=== PATIENT | female | born 1955 | race Caucasian/White ===

== ENCOUNTER 2019-11-20 15:59 | Outpatient (RCR) | payer MEDICARE, BC, SELFPAY ==
--- NOTE | 2019-11-28 07:12 | PTOPEVAL ---
Thank you for referring this patient to [facility]. Please review, sign, date and return this plan of care ROSE. I agree with and certify that the following plan of care is medically necessary. Referring Physician Date Admitting Provider: Attending Provider: PHYSICIAN NOT ON STAFF Referring Provider: *PT Outpatient Evaluation Start: 11/27/19 21:50 Freq: Status: Active Protocol: Document 11/20/19 16:00 SUSHIL (Rec: 11/27/19 22:04 SUSHIL [id number]) Therapy Assessment Status Assessment Status Assessment Status Evaluation Evaluation Information Problem Diagnosis s/p R TKA revision Onset 10/31/19 Subjective Information patient reports she is feeling Query Text:As Reported By Patient/ good this date. she reports Family she hhad a R TKA revision on 10/31/19. she reports the original TKA of the R knee was on 10/11/18. she reports sh had issues with flexion of the R knee and had a manipulation . she reports this manipulation was unsucessful and had to have her R knee revised. she reports she now has a smaller component. Prior Level of Function Comments Additional Prior Level of Function patient has been rehabbing Comments from bilateral knee replacements for over a year. she reports decreased mobility in the knees and decreased ambulaiton/functional activity performance for over a year. Pain Assessment Timing of Pain Assessment Timing of Pain Assessment Assessment Pain Scale Pain Scale Used Numeric (1 - 10) Self Report Pain Assessment Right Knee(s) Reported Pain Level 1 Pain Description Soreness,Tightness Current Pain Intensity 1 Lowest Pain Intensity 1 Greatest Pain Intensity 2 Pain Aggravating Factors Exercise/Activity,Walking Pain Score Pain Score 1: Self Report Lower Extremity Range of Motion Knee Range of Motion Right Knee Flexion Range of Motion - Active 68 Knee Extension Range of Motion - Active -12 Query Text: Lower Extremity Muscle Strength Testing Knee Strength Right Knee Flexion Strength 4 Good Knee Extension Strength 4 Good Muscle Length Testing Muscle Length Testing Left Hamstring Length 35 Query Text:(90 - 90 Position) Right Hamstring Length
--- NOTE | 2019-12-05 09:39 | PCPTNOTE ---
Pt. called to re-schedule her appointment on this date.
--- NOTE | 2019-12-20 08:01 | PTOPEVAL ---
Thank you for referring this patient to [facility]. Please review, sign, date and return this plan of care ROSE. I agree with and certify that the following plan of care is medically necessary. Referring Physician Date Admitting Provider: Attending Provider: PHYSICIAN NOT ON STAFF Referring Provider: *PT Outpatient Evaluation Start: 11/27/19 21:50 Freq: Status: Active Protocol: Document 12/19/19 13:00 Daniel (Rec: 12/20/19 07:58 [facility] [id number]) Therapy Assessment Status Assessment Status Assessment Status Re-evaluation Evaluation Information Problem Diagnosis s/p R TKA revision Subjective Information patient reports she feels Query Text:As Reported By Patient/ alright this date. she Family reports she feels her knee is still tight and not moving much more than prior to her revision surgery. she reports she does return to the surgeon next week for follow up. Pain Assessment Timing of Pain Assessment Timing of Pain Assessment Assessment Pain Scale Pain Scale Used Numeric (1 - 10) Self Report Pain Assessment Right Knee(s) Reported Pain Level 1 Current Pain Intensity 1 Greatest Pain Intensity 3 Pain Score Pain Score 1: Self Report Lower Extremity Range of Motion Knee Range of Motion Right Knee Flexion Range of Motion - Active 70 Knee Flexion Range of Motion - Passive 82 Knee Extension Range of Motion - Active -2 Query Text: Lower Extremity Muscle Strength Testing Knee Strength Right Knee Flexion Strength 4+ Good + Knee Extension Strength 4+ Good + Palpation Assessment Palpation Palpation patient presents with moderate to severe hypertropy of the proximal scar down to the proximal portion of the patella. patient presents with resistance to PROM stretchig of the R knee into flexion with a firm end feel/mm guarding resistance to rom. Gait Assessment Gait Pattern Assessment Other Gait Observations patient ambulates without any ad, but still requires hand rail assit up and down steps with marked time down steps. PT Clinical Summary Clinical Summary Protocol: PTEVCODE Clinical Summary mrs. licona tolerates therapy moderately well this rowena
--- NOTE | 2019-12-27 07:16 | PTOPEVAL ---
Thank you for referring this patient to [facility]. Please review, sign, date and return this plan of care ROSE. I agree with and certify that the following plan of care is medically necessary. Referring Physician Date Admitting Provider: Attending Provider: PHYSICIAN NOT ON STAFF Referring Provider: *PT Outpatient Evaluation Start: 11/27/19 21:50 Freq: Status: Active Protocol: Document 12/27/19 07:07 JANETH (Rec: 12/27/19 07:15 JANETH [id number]) Therapy Assessment Status Assessment Status Assessment Status Re-evaluation Pain Assessment Pain Scale Pain Scale Used Numeric (1 - 10) Self Report Pain Assessment Right Knee(s) Reported Pain Level 0 Pain Score Pain Score 0: Self Report Lower Extremity Range of Motion General Lower Extremity Range of Motion Gross Lower Extremity Range of Motion right knee AROM is 5-62 Comments degrees and PROM into right knee flexion is 80 degrees. PT Clinical Summary Clinical Summary Protocol: PTEVCODE Clinical Summary Pt. has shown little change in ROM since last evaluation on 12/19/19, but significant change since her initial evaluation. Her current program continues to consist of aggressive ROM mu-ism techniques and functional ckc activities. She continues to progress toward goals and we will continue with 12/19/19 POC. PT Services Indicated Yes PT Procedures PT Minutes Total Minutes Of Individual PT This 5 Session (Minutes) Query Text:The Provision Of PT Services By One Licensed PT (Or Licensed STOCK SHIPPER, Under The Appropriate Direction Of A Licensed PT) To One Patient At A Time ( One-On-One Therapy). Total Minutes Of PT This Session (0-180 5 Minutes) Query Text:Total Minutes Must Equal Or Exceed The Sum Of The Minutes Documented Within This Assessment. Physical Therapy Units Of Care (Medicare 0 Standards) (1-8 Units) Query Text:Does Not Take Into Account Procedural Based Charges. Physical Therapy Units Of Care (Medicaid 0 Standards) (1-8 Units) Reflexes Reflexes
--- NOTE | 2020-01-02 13:55 | PCPTNOTE ---
01/02/20 - patient called and cancelled therapy this date. JTF
--- NOTE | 2020-01-03 13:21 | PTOPEVAL ---
Thank you for referring this patient to [facility]. Please review, sign, date and return this plan of care ROSE. I agree with and certify that the following plan of care is medically necessary. Referring Physician Date Admitting Provider: Attending Provider: PHYSICIAN NOT ON STAFF Referring Provider: *PT Outpatient Evaluation Start: 11/27/19 21:50 Freq: Status: Active Protocol: Document 01/03/20 09:[address] [facility] (Rec: 01/03/20 13:[address] [facility] [id number]) Therapy Assessment Status Assessment Status Assessment Status Re-evaluation Evaluation Information Problem Diagnosis s/p R TKA revision and SAMSON, L knee stiffness Subjective Information patient reports she is sore Query Text:As Reported By Patient/ this date. she reports she is Family swollen and bruised from her manipulation to the R knee this date. she reports she has been able to walk today, but was unable to bear weight yesterday. she reports she is to be in skilled PT daily for the first 5 days per her md and order. Pain Assessment Timing of Pain Assessment Timing of Pain Assessment Assessment Pain Scale Pain Scale Used Numeric (1 - 10) Self Report Pain Assessment Left Knee(s) Reported Pain Level 2 Greatest Pain Intensity 6 Right Knee(s) Reported Pain Level 2 Greatest Pain Intensity 6 Pain Score Pain Score 2,2: Self Report Lower Extremity Range of Motion Knee Range of Motion Left Knee Flexion Range of Motion - Active 85 Knee Flexion Range of Motion - Passive 90 Knee Extension Range of Motion - Active 0 Query Text: Right Knee Flexion Range of Motion - Active 75 Knee Flexion Range of Motion - Passive 80 Knee Extension Range of Motion - Active 0 Query Text: Lower Extremity Muscle Strength Testing Knee Strength Left Knee Flexion Strength 4 Good Knee Extension Strength 4- Good - Right Knee Flexion Strength 4- Good - Knee Extension Strength 3+ Fair + Palpation Assessment Palpation Palpation suprapatellar girth: L = 56. 5cm, R = 58cm jt line girth: L 47cm, R = 50cm Gait Assessment Gait Assessment Ambulation Assistive Devices Cane Weight Bearing Status - Left Full Weight Bearing Status - Right Full Maintains Weight Bearing Status Yes Ambulation Distance 50 Query Text:(Fee
--- NOTE | 2020-02-08 10:08 | PTOPEVAL ---
Thank you for referring this patient to [facility]. Please review, sign, date and return this plan of care ROSE. I agree with and certify that the following plan of care is medically necessary. Referring Physician Date Admitting Provider: Attending Provider: PHYSICIAN NOT ON STAFF Referring Provider: *PT Outpatient Evaluation Start: 11/27/19 21:50 Freq: Status: Active Protocol: Document 02/08/20 08:50 Daniel (Rec: 02/08/20 10:08 SUSHIL [id number]) Therapy Assessment Status Assessment Status Assessment Status Re-evaluation Evaluation Information Problem Diagnosis bilateral TKA revisions/ replacements, R knee manipulation Subjective Information patient reports she feels Query Text:As Reported By Patient/ Good this date. she reports Family she feels much better about her mobility and ambulation. however, she still struggles with stair ambulaiton, long distance walking, and would like to continue to work on her mobility. she has new orders to continue per her md. Pain Assessment Timing of Pain Assessment Timing of Pain Assessment Assessment Pain Scale Pain Scale Used Numeric (1 - 10) Self Report Pain Assessment Left Knee(s) Reported Pain Level 0 Greatest Pain Intensity 3 Right Knee(s) Reported Pain Level 0 Greatest Pain Intensity 4 Pain Score Pain Score 0,0: Self Report Lower Extremity Range of Motion Knee Range of Motion Left Knee Flexion Range of Motion - Passive 104 Knee Extension Range of Motion - Active 0 Query Text: Right Knee Flexion Range of Motion - Passive 100 Knee Extension Range of Motion - Active 0 Query Text: Lower Extremity Muscle Strength Testing General Lower Extremity Strength Gross Lower Extremity Strength 4-/5 bilateral hip flex strength Knee Strength Left Knee Flexion Strength 4+ Good + Knee Extension Strength 4 Good Right Knee Flexion Strength 4+ Good + Knee Extension Strength 4 Good Muscle Length Testing Muscle Length Testing Left Hamstring Length 15 Query Text:(90 - 90 Position) Right Hamstring Length 15 Query Text:(90 - 90 Position) Gait Assessment Gait Assessment Ambulation Assistive Devices None Weight Bearing Status - Left Full Weight Bearing Status - Right Full Maintains Weight Bearing Status Yes Ambulation Distance 150 Query
== END 2020-02-21 23:59 | disposition home or self-care (01) ==
LOC: CHSPT 15:59
DX: Z47.1 Aftercare following joint replacement surgery (principal); Z96.651 Presence of right artificial knee joint
CPT/HCPCS: 97016; 97110; 97140; 97162; 97530

== ENCOUNTER 2020-04-02 09:03 | Outpatient (CLI) | payer MEDICARE, SELFPAY ==
[2020-04-02 09:17] LABS: Basophils Absolute Auto 0.04 K/mm3 (0.00-0.10); Basophils Percent Auto 0.7 % (0.0-1.0); Eosinophils Absolute Auto 0.26 K/mm3 (0.02-0.50); Eosinophils Percent Auto 4.6 % (1.0-6.0); Hematocrit 38.2 % (35.0-42.0); Hemoglobin 12.2 g/dL (11.7-13.8); Immature Granulocyte Absolute 0.02 K/mm3 (0.00-0.00); Immature Granulocyte Percent A 0.4 % (0.0-0.0); Lymphocytes Absolute Auto 0.97 K/mm3 (1.10-4.50); Mean Corpuscular HGB Conc 31.9 g/dL (32.0-36.0); Mean Corpuscular Hemoglobin 28.7 pg (27.0-31.0); Mean Corpuscular Volume 89.9 fL (78.0-102.0); Mean Platelet Volume 9.7 fl (9.2-11.8); Monocytes Absolute Auto 0.66 K/mm3 (0.10-0.90); Monocytes Percent Auto 11.6 % (2.0-11.0); Neutrophils Absolute Auto 3.7 K/mm3 (1.7-7.2); Neutrophils Percent Auto 65.7 % (50.0-70.0); Platelet Count Result 191 K/mm3 (150-420); Red Blood Count 4.25 M/mm3 (4.20-5.40); Red Cell Distribution Width 13.6 % (11.6-14.4); White Blood Count 5.7 K/mm3 (4.8-10.8)
[2020-04-02 09:18] LABS: Add Urine Microscopic? NO; Appearance Urine Clear (Clear); Bilirubin Urine Negative (Negative); Blood Urine Negative (Negative); Color Urine Yellow (Yellow); Glucose Urine UA Negative (Negative); Ketones Urine Negative (Negative); Leukocyte Esterase Ur Negative LEU/UL (Negative); Nitrate Urine Negative (Negative); Protein Urine Negative (Negative); Specific Grav Ur 1.025 (1.010-1.020); Urobilinogen Urine 0.2 mg/dL (0.2-1.0); pH Urine 5.5 (5.0-8.0)
[2020-04-02 09:30] LABS: Creatinine Urine 74.61 mg/dL (40-278); MALB Creatinine Ratio 2.5 mg/g (0-30); Microalbumin Urine Random 1.9 mg/L
[2020-04-02 10:11] LABS: Alanine Aminotransferase 25 U/L (14-59); Albumin Level 3.4 g/dL (3.4-5.0); Alkaline Phosphatase 114 U/L (46-116); Anion Gap 12.6 mmol/L (7-16); Aspartate Amino Transferase 17 U/L (15-37); Bilirubin,Total 0.4 mg/dL (0.00-1.00); Blood Urea Nitrogen 22 mg/dL (7-18); Calcium 9.2 mg/dL (8.5-10.1); Carbon Dioxide 31 mmol/L (21-32); Chloride 104 mmol/L (98-108); Cholesterol 180 mg/dL (0-200); Creatine Kinase 33 U/L (26-192); Estimated Glomerular Filt Rate > 60; Free T4 Free Thyroxine 0.98 ng/dL (0.76-1.46); Glucose 94 mg/dL (70-99); HDL Direct 63 mg/dL (40-60); LDL Cholesterol Calculated 102 mg/dL (<130); Osmolality Calculated 299 mOsm/kg (285-295); Potassium 4.6 mmol/L (3.5-5.1); Sodium 143 mmol/L (136-145); Thyroid Stimulating Hormone 2.73 uIU/mL (0.36-3.74); Total Protein 7.5 g/dL (6.4-8.2); Triglycerides 73 mg/dL (0-150)
[2020-04-08 10:30] LABS: Vitamin D 25 Hydroxy 46 ng/mL (30-100)
== END 2020-04-02 09:04 | disposition home or self-care (01) ==
LOC: CHSLAB 09:05
PROVIDERS: PCP Internal Medicine; Visit Provider Internal Medicine
DX: E78.5 Hyperlipidemia, unspecified (principal); I10 Essential (primary) hypertension; E11.65 Type 2 diabetes mellitus with hyperglycemia; E03.4 Atrophy of thyroid (acquired); E55.9 Vitamin D deficiency, unspecified
CPT/HCPCS: 36415; 80053; 80061; 81003; 82043; 82306; 82550; 83036; 84439; 84443; 85025

== ENCOUNTER 2020-10-31 08:24 | Outpatient (CLI) | payer MEDICARE, SELFPAY ==
[2020-10-31 08:35] LABS: Basophils Absolute Auto 0.04 K/mm3 (0.00-0.10); Basophils Percent Auto 0.6 % (0.0-1.0); Eosinophils Absolute Auto 0.28 K/mm3 (0.02-0.50); Eosinophils Percent Auto 4.3 % (1.0-6.0); Hematocrit 38.5 % (35.0-42.0); Hemoglobin 12.4 g/dL (11.7-13.8); Immature Granulocyte Absolute 0.03 K/mm3 (0.00-0.00); Immature Granulocyte Percent A 0.5 % (0.0-0.0); Lymphocytes Absolute Auto 1.07 K/mm3 (1.10-4.50); Lymphocytes Percent Auto 16.6 % (18.0-42.0); Mean Corpuscular HGB Conc 32.2 g/dL (32.0-36.0); Mean Corpuscular Hemoglobin 29.8 pg (27.0-31.0); Mean Corpuscular Volume 92.5 fL (78.0-102.0); Mean Platelet Volume 9.6 fl (9.2-11.8); Monocytes Absolute Auto 0.64 K/mm3 (0.10-0.90); Monocytes Percent Auto 9.9 % (2.0-11.0); Neutrophils Absolute Auto 4.4 K/mm3 (1.7-7.2); Neutrophils Percent Auto 68.1 % (50.0-70.0); Platelet Count Result 249 K/mm3 (150-420); Red Blood Count 4.16 M/mm3 (4.20-5.40); Red Cell Distribution Width 13.3 % (11.6-14.4); White Blood Count 6.4 K/mm3 (4.8-10.8)
[2020-10-31 08:45] LABS: Appearance Urine Sl Cloudy (Clear); Bilirubin Urine Negative (Negative); Color Urine Yellow (Yellow); Glucose Urine UA Negative (Negative); Ketones Urine Negative (Negative); Leukocyte Esterase Ur Negative (Negative); Nitrate Urine Negative (Negative); Protein Urine Negative (Negative); Specific Grav Ur 1.025 (1.010-1.020); Urobilinogen Urine 0.2 mg/dL (0.2-1.0); pH Urine 5.5 (5.0-8.0)
[2020-10-31 08:55] LABS: Creatinine Urine 146.76 mg/dL (40-278); MALB Creatinine Ratio 8.8 mg/g (0-30); Microalbumin Urine Random < 13.0 mg/L
[2020-10-31 08:56] LABS: Add Urine Microscopic? YES; Bacteria Urine 1+ /hpf; Blood Urine Trace-lysed (Negative); Hemoglobin A1C 5.3 % (<5.7); RBC Urine None seen /hpf (0-2); Squamous Epithelial Cell Urine Moderate /hpf (Few); WBC Urine None seen /hpf (0-3)
[2020-10-31 10:06] LABS: Alanine Aminotransferase 21 U/L (14-59); Albumin Level 3.8 g/dL (3.4-5.0); Alkaline Phosphatase 117 U/L (46-116); Anion Gap 6 mmol/L (8-16); Aspartate Amino Transferase 12 U/L (15-37); Bilirubin,Total 0.5 mg/dL (0.00-1.00); Blood Urea Nitrogen 24 mg/dL (7-18); Carbon Dioxide 31 mmol/L (21-32); Chloride 102 mmol/L (98-108); Cholesterol 187 mg/dL (0-200); Creatine Kinase 37 U/L (26-192); Estimated Glomerular Filt Rate > 60; Free T3 2.11 pg/mL (2.18-3.98); Free T4 Free Thyroxine 1.14 ng/dL (0.76-1.46); Glucose 95 mg/dL (70-99); HDL Direct 62 mg/dL (40-60); LDL Cholesterol Calculated 107 mg/dL (<130); Magnesium 2.1 mg/dL (1.8-2.4); Osmolality Calculated 292 mOsm/kg (285-295); Sodium 139 mmol/L (136-145); Thyroid Stimulating Hormone 1.24 uIU/mL (0.36-3.74); Total Protein 8.2 g/dL (6.4-8.2); Triglycerides 91 mg/dL (0-150)
[2020-11-03 03:35] LABS: Zinc 82 mcg/dL (60-130)
[2020-11-04 13:04] LABS: Vitamin D 25 Hydroxy 52 ng/mL (30-100)
[2020-11-05 22:50] LABS: Vitamin A 41 mcg/dL (38-98)
== END 2020-10-31 08:25 | disposition home or self-care (01) ==
LOC: CHSLAB 08:25
PROVIDERS: PCP Internal Medicine; Visit Provider Internal Medicine
DX: E11.9 Type 2 diabetes mellitus without complications (principal); I10 Essential (primary) hypertension; E78.2 Mixed hyperlipidemia; E03.4 Atrophy of thyroid (acquired); E55.9 Vitamin D deficiency, unspecified; Z98.84 Bariatric surgery status; K90.9 Intestinal malabsorption, unspecified
CPT/HCPCS: 36415; 80053; 80061; 81001; 82043; 82306; 82550; 83036; 83735; 84439; 84443; 84481; 84590; 84630; 85025

== ENCOUNTER 2021-04-16 09:02 | Outpatient (CLI) | payer MEDICARE, SELFPAY ==
[2021-04-16 09:24] LABS: Basophils Absolute Auto 0.07 K/mm3 (0.00-0.10); Eosinophils Absolute Auto 0.23 K/mm3 (0.02-0.50); Eosinophils Percent Auto 3.4 % (1.0-6.0); Hematocrit 37.5 % (35.0-42.0); Immature Granulocyte Absolute 0.03 K/mm3 (0.00-0.00); Immature Granulocyte Percent A 0.4 % (0.0-0.0); Lymphocytes Absolute Auto 1.22 K/mm3 (1.10-4.50); Lymphocytes Percent Auto 18.2 % (18.0-42.0); Mean Corpuscular Hemoglobin 28.1 pg (27.0-31.0); Mean Corpuscular Volume 87.8 fL (78.0-102.0); Mean Platelet Volume 9.8 fl (9.2-11.8); Neutrophils Absolute Auto 4.6 K/mm3 (1.7-7.2); Platelet Count Result 256 K/mm3 (150-420); Red Blood Count 4.27 M/mm3 (4.20-5.40); Red Cell Distribution Width 14.5 % (11.6-14.4); White Blood Count 6.7 K/mm3 (4.8-10.8)
[2021-04-16 09:50] LABS: MALB Creatinine Ratio 12.3 mg/g (0-30); Microalbumin Urine Random < 13.0 mg/L
[2021-04-16 10:29] LABS: Alanine Aminotransferase 21 U/L (14-59); Albumin Level 3.4 g/dL (3.4-5.0); Alkaline Phosphatase 118 U/L (46-116); Anion Gap 9 mmol/L (8-16); Aspartate Amino Transferase 11 U/L (15-37); Bilirubin,Total 0.3 mg/dL (0.00-1.00); Blood Urea Nitrogen 22 mg/dL (7-18); Calcium 8.9 mg/dL (8.5-10.1); Carbon Dioxide 29 mmol/L (21-32); Chloride 102 mmol/L (98-108); Cholesterol 255 mg/dL (0-200); Creatine Kinase 34 U/L (26-192); Estimated Glomerular Filt Rate > 60; Free T3 2.11 pg/mL (2.18-3.98); Free T4 Free Thyroxine 0.88 ng/dL (0.76-1.46); Glucose 97 mg/dL (70-99); HDL Direct 52 mg/dL (40-60); LDL Cholesterol Calculated 174 mg/dL (<130); Osmolality Calculated 293 mOsm/kg (285-295); Potassium 4.3 mmol/L (3.5-5.1); Sodium 140 mmol/L (136-145); Thyroid Stimulating Hormone 7.06 uIU/mL (0.36-3.74); Total Protein 7.6 g/dL (6.4-8.2); Triglycerides 146 mg/dL (0-150)
[2021-04-16 13:04] LABS: Add Urine Microscopic? NO; Appearance Urine Clear (Clear); Bilirubin Urine Negative (Negative); Blood Urine Negative (Negative); Color Urine Yellow (Yellow); Glucose Urine UA Negative (Negative); Ketones Urine Negative (Negative); Leukocyte Esterase Ur Negative LEU/UL (Negative); Nitrate Urine Negative (Negative); Protein Urine Negative (Negative); Specific Grav Ur 1.025 (1.010-1.020); Urobilinogen Urine 0.2 mg/dL (0.2-1.0); pH Urine 5.5 (5.0-8.0)
[2021-04-18 20:40] LABS: Vitamin D 25 Hydroxy 42 ng/mL (30-100)
== END 2021-04-16 09:03 | disposition home or self-care (01) ==
LOC: CHSLAB 09:07
PROVIDERS: PCP Internal Medicine; Visit Provider Internal Medicine
DX: E03.4 Atrophy of thyroid (acquired) (principal); I10 Essential (primary) hypertension; E78.5 Hyperlipidemia, unspecified; E11.9 Type 2 diabetes mellitus without complications; E55.9 Vitamin D deficiency, unspecified; N39.0 Urinary tract infection, site not specified
CPT/HCPCS: 36415; 80053; 80061; 81003; 82043; 82306; 82550; 83036; 84439; 84443; 84481; 85025

== ENCOUNTER 2021-05-14 13:00 | Outpatient (CLI) | payer MEDICARE, SELFPAY ==
--- NOTE | 2021-05-14 | ECHO_ITS ---
Patient Info Name: Mary Lou Reed Age: 65 years : 1955 Gender: Female Ht: 61 in Wt: 279 lbs BSA: 2.42 m2 HR: 81 bpm BP: 153 / 76 mmHg Technical Quality: Fair Exam Date: 05/14/2021 2:03 PM Exam Location: [facility] Patient Status: Outpatient Admit Date: 05/14/2021 Staff Ordering Physician: Trey Posadas MD Digital Marketing Consultant: Miryam Fine RDCS Attending Provider: Trey Posadas MD Referring Physician: Cuauhtemoc THEODORE; Exam Type: CA echo doppler color flow Study Info Indications R01.1 - Cardiac murmur, unspecified Complete two-dimensional, color flow and Doppler transthoracic echocardiogram is performed. Summary 1. Complete two-dimensional, color flow and Doppler transthoracic echocardiogram is performed. 2. Left ventricular chamber dimension is normal. 3. Left ventricular systolic function is normal, estimated at 60-65%. 4. The left ventricular diastolic function is grade II diastolic dysfunction. 5. E/e' 10 is mildly elevated. 6. Left atrial chamber dimension is mildly enlarged. 7. There is mild aortic valve sclerosis. 8. The mitral valve has moderately calcified annulus. Left Ventricle E/e' 10 is mildly elevated. Left ventricular chamber dimension is normal. Left ventricular systolic function is normal, estimated at 60-65%. The left ventricular diastolic function is grade II diastolic dysfunction. Right Ventricle Right ventricular chamber dimension is normal. Right ventricular systolic function is normal. Left Atria Left atrial chamber dimension is mildly enlarged. Right Atria Right atrial chamber dimension is normal. Aortic Valve The aortic valve is trileaflet. There is mild aortic valve sclerosis. There is no aortic valve stenosis. There is no aortic valve regurgitation. Pulmonic Valve There is no pulmonic regurgitation. Mitral Valve The mitral valve has moderately calcified annulus. There is no mitral valve stenosis. There is no mitral valve regurgitation. Tricuspid Valve There is no tricuspid valve regurgitation. Pericardium/Pleural There is no pericardial effusion. Inferior Vena Cava Normal inferior vena cava with >50% collapse upon inspiration consistent with normal right atrial pressure, 5 mmHg. Aorta The aortic root size at the sinus of Valsalva is normal. Left Ventricular Outflow Tract Name Value Normal LVOT 2D LVOT Diameter 1.9 cm LVOT Doppler LVOT Peak Gradient 10 mmHg LVOT Mean Gradient 6 mmHg LVOT VTI 38 cm LVOT VTI/AV VTI Ratio 0.7 LVOT Stroke Volume 108 ml LVOT CO 7.5 l/min LVOT CI 3.1 l/min/m2 Pulmonic Valve Name Value Normal RVOT Doppler RVOT Peak Gradient
== END 2021-05-14 13:01 | disposition home or self-care (01) ==
PROVIDERS: PCP Internal Medicine; Visit Provider Internal Medicine
DX: R01.1 Cardiac murmur, unspecified (principal); I51.7 Cardiomegaly
CPT/HCPCS: 93306

== ENCOUNTER 2021-05-22 10:37 | Emergency (ER) | payer MEDICARE, SELFPAY ==
--- NOTE | ~2021-05-22 | CT_ITS ---
EXAMINATION: CTA chest PE protocol EXAM DATE: 05/22/2021 15:03 INDICATION: D Dimer, chest pain. Elevated d-dimer. TECHNIQUE: Spiral CTA of the chest (pulmonary arteries) was performed with 100 cc Omnipaque 350 intr avenous contrast injection. Images were acquired during the pulmonary arterial phase. Coronal maxi mum intensity projection 3D-reconstructions were created by the technologist on dedicated workstation . Axial, coronal and sagittal reformatted images were reviewed. The dose-length product (DLP) for t his examination was 1737.68 mGy-cm. The exposure was tailored according to patient size (auto mA ex posure control), and iterative reconstruction (ASIR) was used as additional dose reduction technique. There is no prior study for comparison. Reportedly IV infiltrated at right hand. FINDINGS: There is suboptimal opacification, reportedly IV infiltrated. There are no central pulmonar y emboli. There is loss of attenuation in the segmental pulmonary arteries from respiratory motion, s egmental regions not confidently evaluated. No thoracic aortic dissection. Left posterior sulcus calcified granuloma. The lungs are otherwise clear. There are no pleural or pericardial effusions. Tracheobronchial tree is patent. There is no mediastinal, hilar or axillary lymphadenopathy. Th ere is no pneumothorax. Heart normal in size. No evidence of coronary arterial calcification. Mirza rgical changes probably gastric sleeve procedure, with small to moderate gastroesophageal hiatal marianela ia. There is mild to moderate thoracic spondylosis without osteoblastic or osteolytic lesions identi fied. IMPRESSION: 1. No central pulmonary emboli. Segmental arteries poorly evaluated. 2. Small to moderate hiatal hernia. Reviewed, dictated and finalized at location B.
--- NOTE | ~2021-05-22 | XR_ITS ---
EXAMINATION: XR chest 2V EXAM DATE: 05/22/2021 13:11 INDICATION: Chest pain, hx pleurisy. TECHNIQUE: Frontal and lateral projections of the chest obtained and reviewed. Comparison is made to prior examination from 04/04/2016. FINDINGS: The lungs are clear. There are no pleural effusions. The cardiomediastinal silhouette is within normal limits. There is no pneumothorax suspected. The bones and soft tissues are unremarkab le. IMPRESSION: Unremarkable chest x-ray exam. Reviewed, dictated and finalized at location B.
[2021-05-22 10:42] VITALS: BP 149/70; PULSE 74; RESP 16; TEMP 36.1; O2SAT 98
--- NOTE | 2021-05-22 12:36 | ECG_ITS ---
Measurements Intervals [place] Rate: 68 P: 58 RI: 156 QRS: 55 QRSD: 90 T: 59 QT: 396 QTc: 421 Interpretive Statements SINUS RHYTHM NONSPECIFIC T-WAVE ABNORMALITY- HIGH LATERAL LEADS BASELINE ARTIFACT- II, III, AVF, V1-V3 BORDERLINE ECG Electronically Signed On 05-22-2021 13:45:56 CDT by Jameson Roth D.O.
[2021-05-22 13:11] LABS: Basophils Absolute Auto 0.06 K/mm3 (0.00-0.10); Basophils Percent Auto 0.9 % (0.0-1.0); Eosinophils Absolute Auto 0.28 K/mm3 (0.02-0.50); Eosinophils Percent Auto 4.1 % (1.0-6.0); Hematocrit 38.7 % (35.0-42.0); Hemoglobin 12.5 g/dL (11.7-13.8); Immature Granulocyte Absolute 0.03 K/mm3 (0.00-0.00); Immature Granulocyte Percent A 0.4 % (0.0-0.0); Lymphocytes Absolute Auto 1.16 K/mm3 (1.10-4.50); Lymphocytes Percent Auto 16.9 % (18.0-42.0); Mean Corpuscular HGB Conc 32.3 g/dL (32.0-36.0); Mean Corpuscular Volume 89.8 fL (78.0-102.0); Mean Platelet Volume 10.1 fl (9.2-11.8); Monocytes Absolute Auto 0.62 K/mm3 (0.10-0.90); Monocytes Percent Auto 9.1 % (2.0-11.0); Neutrophils Absolute Auto 4.7 K/mm3 (1.7-7.2); Neutrophils Percent Auto 68.6 % (50.0-70.0); Platelet Count Result 253 K/mm3 (150-420); Red Blood Count 4.31 M/mm3 (4.20-5.40); Red Cell Distribution Width 13.9 % (11.6-14.4); White Blood Count 6.9 K/mm3 (4.8-10.8)
[2021-05-22] MEDS: DEXAMETHASONE 4 MG TABLET 12 MG PO (13:14)
[2021-05-22] MEDS: KETOROLAC (*BKC) 60 MG/2 ML VIAL IM (13:15)
[2021-05-22] MEDS: BACLOFEN 10 MG TABLET 20 MG PO (13:15)
[2021-05-22 13:22] LABS: D Dimer 0.61 mg/L (0.19-0.50)
[2021-05-22 13:26] LABS: Alanine Aminotransferase 16 U/L (14-59); Albumin Level 3.5 g/dL (3.4-5.0); Alkaline Phosphatase 98 U/L (46-116); Anion Gap 10 mmol/L (8-16); Aspartate Amino Transferase 13 U/L (15-37); Bilirubin,Total 0.3 mg/dL (0.00-1.00); Blood Urea Nitrogen 25 mg/dL (7-18); Calcium 9.4 mg/dL (8.5-10.1); Carbon Dioxide 28 mmol/L (21-32); Chloride 103 mmol/L (98-108); Estimated CRCL calculation 74 ml/min; Estimated Glomerular Filt Rate > 60; Glucose 103 mg/dL (70-99); NT Pro B Type Natriuretic Pept 38 pg/mL (0-125); Osmolality Calculated 296 mOsm/kg (285-295); Potassium 4.4 mmol/L (3.5-5.1); Sodium 141 mmol/L (136-145); Total Protein 8.1 g/dL (6.4-8.2)
[2021-05-22 13:27] LABS: Troponin I < 4.0 ng/L (0.00-60.4)
--- NOTE | 2021-05-22 15:14 | ED.BACK ---
HPI - Back Pain/Injury General Source: patient Mode of arrival: ambulatory Limitations: no limitations History of Present Illness HPI Narrative: Patient comes in with complaints of severe, sharp stabbing pain in thoracic spine, about where her bra strap hits in the back, in the mid back area at about T6 level. This started yesterday pm when she was driving to [place], and started abruptly. This was not associated with shortness of breath, or chest pain anteriorly. She has denied fever, chills and cough. The pain lasted for a few hours last night and let up. It has returned again an hour or so ago, and so she comes in because of this. Nothing is known or believed to have precipitated this pain, and nothing has helped it decrease at home MD elicited complaint: back pain Onset (ago): hour(s) Timing: constant Severity: moderate Quality: sharp and stabbing Location: thoracic spine Exacerbating factors: movement Context: unknown Associated symptoms: denies other symptoms Related Data Home Medications Medication Instructions Recorded Confirmed buspirone 10 mg PO BID 05/22/21 05/23/21 citalopram 20 mg PO DAILY 05/22/21 05/23/21 ergocalciferol (vitamin D2) 100,000 unit PO WEEKLY 05/22/21 05/23/21 hydrochlorothiazide 12.5 mg PO DAILY 05/22/21 05/23/21 levothyroxine [Euthyrox] 175 mcg PO DAILY 05/22/21 05/23/21 losartan 100 mg PO DAILY 05/22/21 05/23/21 potassium chloride 10 meq PO BID 05/22/21 05/23/21 zolpidem 10 mg PO HS 05/22/21 05/23/21 Allergies Allergy/AdvReac Type Severity Reaction Status Date / Time Penicillins Allergy Severe Verified 05/14/14 08:18 Sulfa (Sulfonamide Allergy Intermediate Verified 05/14/14 08:18 Antibiotics) sulfamethoxazole Allergy Mild RASH Verified 05/14/14 08:18 trimethoprim Allergy Mild RASH Verified 05/14/14 08:18 Review of Systems Constitutional: Constitutional: Reports no additional constitutional complaints Eyes: Eyes: Reports no additional eye complaints ENT: Reports system reviewed and no additional complaints, except as documented Cardiovascular: Cardiovascular: Reports no additional cardiovascular complaints Respiratory: Respiratory: Reports no additional respiratory complaints Gastrointestinal: Gastrointestinal: Reports no additional gastrointestinal complaints Genitourinary: Genitourinary: Reports no additional female genitourinary complaints Musculoskeletal: Musculoskeletal: Reports no additional musculoskeletal complaints Integumentary/Breasts: Skin/Breast: Reports system reviewed and no additional complaints, except as docu Neurologic: Reports system reviewed and no additional complaints, except as documented Psychiatric: Psychiatric: Reports no additional psychiatric complaints Endocrine: Endocrine: Reports no additional endocrine complaints Hematologic/Lymphatic: Hematologic/Lymphatic: Reports no additional hematologic/lymphatic complaints Allergic/Immunologic: Allergic/Immunologic: Reports no additional allergic/immunologic complaints [facility] Past Medical History Medical History (Updated 05/23/21 @ 06:08 by Chilo Diaz MD) Depression Diabetes Hyperlipidemia Hypertension Vitamin D deficiency Surgical History Surgical History (Updated 05/23/21 @ 05:54 by Chilo Diaz MD) H/O total knee replacement Family History Family History (Updated 05/23/21 @ 05:55 by Chilo Diaz MD) Other Family history non-contributory Social History Social History (Updated 05/23/21 @ 05:56 by Chilo Diaz MD) Smoking status: Never smoker Alcohol intake: never Additional living arrangements comments: 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
[2021-05-22 15:25] VITALS: BP 158/65; RESP 15; O2SAT 99
--- NOTE | 2021-05-22 15:25 | PC.NURSE ---
IV access initiated in R hand by CT staff Elijah. IV site infiltrated during contrast administration. pt c/o pain and swelling in right hand. erp aware
== END 2021-05-22 15:25 | disposition home or self-care (01) ==
PROVIDERS: Emergency Provider Emergency Medicine; PCP Internal Medicine
DX: M54.9 Dorsalgia, unspecified (principal); E11.9 Type 2 diabetes mellitus without complications; E78.5 Hyperlipidemia, unspecified; I10 Essential (primary) hypertension
CPT/HCPCS: 36415; 71046; 71275; 80053; 83880; 84484; 85025; 85380; 93005; 96372; 99283; 99284; A9270; J1885; J8540; Q9967

== ENCOUNTER 2021-05-22 23:41 | Emergency (ER) | payer MEDICARE, SELFPAY ==
[2021-05-23] VITALS: BP 148/83; PULSE 70; RESP 20; TEMP 36.7; O2SAT 97
[2021-05-23] MEDS: EPINEPHrine HCL INJ 1 MG/ML AMPUL 0.4 MG SUB-Q (00:05)
[2021-05-23] MEDS: diphenhydrAMINE HCl INJ 50 MG/ML VIAL IM (00:10)
[2021-05-23] MEDS: FAMOTIDINE 20 MG TABLET 40 MG PO (00:12)
[2021-05-23] MEDS: DEXAMETHASONE SOD PHOS INJ 4 MG/ML VIAL 12 MG IM (00:13)
--- NOTE | 2021-05-23 00:44 | ED.EXTPRO ---
HPI - Extremity Problem General Source: patient Mode of arrival: ambulatory Limitations: no limitations History of Present Illness HPI Narrative: Patient comes in with right hand swollen since the IV infiltrated in her hand last pm. Discomfort has been mild to moderately severe, ongoing, sharp, made worse with flexing the hand, and made better with rest. MD Complaint: extremity pain Onset (ago): hour(s) Pain Consistency: constant Location: right and upper extremity Severity scale (1-10): 4 Quality: stabbing and aching Relieving factors: immobilization Exacerbating factors: range of motion Associated symptoms: denies other symptoms Context: other (recent Iv infiltration) Related Data Home Medications Medication Instructions Recorded Confirmed buspirone 10 mg PO BID 05/22/21 05/23/21 citalopram 20 mg PO DAILY 05/22/21 05/23/21 ergocalciferol (vitamin D2) 100,000 unit PO WEEKLY 05/22/21 05/23/21 hydrochlorothiazide 12.5 mg PO DAILY 05/22/21 05/23/21 levothyroxine [Euthyrox] 175 mcg PO DAILY 05/22/21 05/23/21 losartan 100 mg PO DAILY 05/22/21 05/23/21 potassium chloride 10 meq PO BID 05/22/21 05/23/21 zolpidem 10 mg PO HS 05/22/21 05/23/21 Allergies Allergy/AdvReac Type Severity Reaction Status Date / Time Penicillins Allergy Severe Verified 05/14/14 08:18 Sulfa (Sulfonamide Allergy Intermediate Verified 05/14/14 08:18 Antibiotics) sulfamethoxazole Allergy Mild RASH Verified 05/14/14 08:18 trimethoprim Allergy Mild RASH Verified 05/14/14 08:18 Review of Systems Constitutional: Constitutional: Reports no additional constitutional complaints Eyes: Eyes: Reports no additional eye complaints ENT: Reports system reviewed and no additional complaints, except as documented Cardiovascular: Cardiovascular: Reports no additional cardiovascular complaints Respiratory: Respiratory: Reports no additional respiratory complaints Gastrointestinal: Gastrointestinal: Reports no additional gastrointestinal complaints Genitourinary: Genitourinary: Reports no additional female genitourinary complaints Musculoskeletal: Musculoskeletal: Reports no additional musculoskeletal complaints Integumentary/Breasts: Skin/Breast: Reports system reviewed and no additional complaints, except as docu Neurologic: Reports system reviewed and no additional complaints, except as documented Psychiatric: Psychiatric: Reports no additional psychiatric complaints Endocrine: Endocrine: Reports no additional endocrine complaints Hematologic/Lymphatic: Hematologic/Lymphatic: Reports no additional hematologic/lymphatic complaints Allergic/Immunologic: Allergic/Immunologic: Reports no additional allergic/immunologic complaints [facility] Past Medical History Medical History Depression Diabetes Hyperlipidemia Hypertension Vitamin D deficiency Surgical History Surgical History H/O total knee replacement Family History Family History Other Family history non-contributory Social History Social History Smoking status: Never smoker Alcohol intake: never Additional living arrangements comments: 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 Exam Const: General: no acute distress and alert Orientation/consciousness: patient oriented x3 HENMT: Head: normal to inspection Ears: external ears normal General nose exam: Normal external nose present Mouth: Yes Normal oral and palatal mucosa present Throat: posterior oropharynx normal Eyes: Conjunctivae: conjunctivae normal Neck: Neck: normal visual inspection Chest: Chest palpation & inspection: normal inspection of the chest Resp: Effort & Inspection: normal respiratory effort Auscultation: clear to auscultation bilaterally Cardio: Rate: regular rate Rhythm: regular rhythm GI: GI Palp: Yes Soft t
[2021-05-23 00:49] VITALS: BP 140/80; PULSE 72; RESP 18; O2SAT 98
== END 2021-05-23 00:55 | disposition home or self-care (01) ==
PROVIDERS: Emergency Provider Emergency Medicine; PCP Internal Medicine
DX: M79.89 Other specified soft tissue disorders (principal); T80.89XA Other complications following infusion, transfusion and therapeutic injection, initial encounter; E11.9 Type 2 diabetes mellitus without complications; E78.5 Hyperlipidemia, unspecified; I10 Essential (primary) hypertension
CPT/HCPCS: 96372; 99283; 99284; A9270; J0171; J1100; J1200

== ENCOUNTER 2021-06-11 12:45 | Outpatient (CLI) | payer MEDICARE, SELFPAY ==
--- NOTE | ~2021-06-11 | MM_ITS ---
EXAMINATION: MM screening [facility] BI w blu HISTORY: Screening mammogram TECHNIQUE: Craniocaudal and mediolateral oblique 3-D tomosynthesis images were obtained and synthetic 2-D images were generated. CAD analysis was submitted and interpreted. COMPARISON: 01/31/2015, 09/17/2013 bilateral digital screening mammogram examinations BREAST PARENCHYMAL COMPOSITION: There are scattered areas of fibroglandular density. FINDINGS: There are numerous bilateral benign calcifications. Stable approximately 1.5 cm circumscrib ed 1.5 cm mass with halo sign in central right breast. Stable up to approximately 7 x 12 mm masses with benign calcification in the posterior upper outer le ft breast. There is no evidence of suspicious mass, calcification, or architectural distortion to sug gest malignancy in either breast. There has been no suspicious interval change. IMPRESSION: 1. No mammographic evidence of malignancy. 2. Recommend routine screening mammography in one year. BI-RADS Category 2: Benign finding(s). Reviewed, dictated and finalized at location A.
== END 2021-06-11 12:46 | disposition home or self-care (01) ==
LOC: CHSIMG 12:46
PROVIDERS: PCP Internal Medicine; Visit Provider Nurse Practitioner Family
DX: Z12.31 Encounter for screening mammogram for malignant neoplasm of breast (principal); Z78.0 Asymptomatic menopausal state
CPT/HCPCS: 77063; 77067

== ENCOUNTER 2021-06-16 12:45 | Outpatient (CLI) | payer MEDICARE, SELFPAY ==
--- NOTE | ~2021-06-16 | DEXA_ITS ---
Bone Density Report Name: Mary Lou Reed Age: 65 Sex: Female Ethnicity: White Date of : 1955 Indication: postmenopausal; screening for osteoporosis; Referring Provider: Trey Posadas Study: Bone densitometry was performed. Exam Date: June 16, 2021 Accession number: [id number] Bone Density: Region BMD T-score Z-score Classification AP Spine(L1-L4) 1.097 0.5 2.3 Normal Femoral Neck (Left) 0.776 -0.7 0.9 Normal Total Hip (Left) 1.203 2.1 3.5 Normal Femoral Neck (Right) 0.842 -0.1 1.5 Normal Total Hip (Right) 1.180 2.0 3.3 Normal Femoral Neck Mean 0.809 -0.4 1.2 Normal Total Hip Mean 1.192 2.0 3.4 Normal World Health Organization criteria for BMD impression classify patients as: Normal (T-score at or above -1.0), Osteopenia (T-score between -1.0 and -2.5), or Osteoporosis (T-score at or below -2.5). 10-year Fracture Risk: FRAX not reported because: All T-scores for Spine Total, Hip Total, Femoral Neck at or above -1.0 Clinical Information Provided by Patient: Has used the following medications: Vitamin D, Calcium Patient maximum height was 62 Menopause Age: 47 No regular weight bearing exercise Drinks caffeinated beverages Onset of menses at age 11 Impression: The patient has normal bone mass. Discussion: BONE DENSITY IS ABOVE THE MINIMUM DESIRABLE LEVEL AT ALL SKELETAL SITES TESTED. This patient?s bone mineral density is above the minimum desirable level (T-score -1.0 or better) at all sites measured. The patient should follow a healthful lifestyle (good nutrition with adequate calcium and vitamin D, and appropriate weight-bearing exercise). Follow-Up: Consider repeating this study in 5 years or sooner if there is some new clinical indication. Reported by: Dr. Gabriel Robert on 06/16/2021 1:43:00 PM. Reviewed, dictated and finalized at location [facility] [place]
--- NOTE | ~2021-06-16 | US_ITS ---
EXAMINATION: US pelvic complete DATE: 06/16/2021 13:31 INDICATION: Abnormal Pap smear. Postmenopausal. TECHNIQUE: Multiple transabdominal sonographic images of the pelvis were obtained. COMPARISON: None. FINDINGS: The uterus measures 5.2 x 2.1 x 2.8 cm. There is no free fluid in the pelvis. The endometrial complex measures 4 mm in thickness. The ovaries are not visualized. IMPRESSION: 1. Normal uterus. Ovaries not visualized. Reviewed, dictated and finalized at location A.
== END 2021-06-16 12:46 | disposition home or self-care (01) ==
LOC: CHSIMG 12:47
PROVIDERS: PCP Internal Medicine; Visit Provider Nurse Practitioner Family
DX: Z78.0 Asymptomatic menopausal state (principal); R87.619 Unspecified abnormal cytological findings in specimens from cervix uteri
CPT/HCPCS: 76856; 77080

== ENCOUNTER 2021-07-30 01:35 | Day surgery (SDC) | payer MEDICARE, SELFPAY ==
[2021-07-17 14:53] VITALS: BMI 49.1
[2021-07-30 06:56] VITALS: BP 171/70; PULSE 72; RESP 18; TEMP 36.1; O2SAT 98; BMI 51.3
[2021-07-30] MEDS: LACTATED RINGERS 1,000 ML 150 ML IV CONT (07:09)
--- NOTE | 2021-07-30 07:17 | WPDANESEPPF ---
Anes - Initial Pre Proc Eval Procedure: Operation Date: 07/30/21 08:00 Proposed Procedures p Screening Colonoscopy - Chilo Wing MD Date/Time: 07/30/21 07:17 Surgeon: Chilo Wing MD Pre Op Diagnosis: hx of colon polyps, Z86.010 Patient Data Age: 65 Gender: F Height: 1.57 m Weight: 127.4 kg Last Vital Signs Temp 36.1 C L 07/30/21 06:56 Pulse 72 07/30/21 06:56 Resp 18 07/30/21 06:56 BP 171/70 H 07/30/21 06:56 Pulse Ox 98 07/30/21 06:56 Allergies Allergy/AdvReac Type Severity Reaction Status Date / Time Penicillins Allergy Severe Unknown Verified 07/30/21 06:53 Sulfa (Sulfonamide Allergy Intermediate Rash Verified 07/30/21 06:53 Antibiotics) sulfamethoxazole Allergy Mild RASH Verified 07/30/21 06:53 trimethoprim Allergy Mild RASH Verified 07/30/21 06:53 Home Medications Medication Instructions Recorded Confirmed Type buspirone 10 mg PO BID 05/22/21 07/30/21 History citalopram 20 mg PO DAILY 05/22/21 07/30/21 History ergocalciferol (vitamin D2) 100,000 unit PO WEEKLY 05/22/21 07/30/21 History hydrochlorothiazide 12.5 mg PO DAILY 05/22/21 07/30/21 History levothyroxine [Euthyrox] 175 mcg PO DAILY 05/22/21 07/30/21 History losartan 100 mg PO DAILY 05/22/21 07/30/21 History potassium chloride 10 meq PO BID 05/22/21 07/30/21 History zolpidem 10 mg PO HS 05/22/21 07/30/21 History multivitamin [A To Z Multivitamin] 1 tablet PO DAILY 07/17/21 07/30/21 History Patient hx anesthesia problems: none Family hx anesthesia problems: none PMFSH Past Medical History Medical History (Updated 07/30/21 @ 07:19 by Sergio Perdomo MD) Depression Diabetes Hyperlipidemia Hypertension Morbid obesity with BMI of 50.0-59.9, adult Vitamin D deficiency Surgical History Surgical History H/O total knee replacement Family History Family History Other Family history non-contributory Social History Social History Smoking status: Never smoker Alcohol intake: never Living arrangements: alone Additional living arrangements comments: 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 Questions were solicited and answers provided to the satisfaction of the patient/family/POA.
--- NOTE | 2021-07-30 07:49 | WPDGICN ---
Assessment and Plan Assessment and plan (1) History of colon polyps: Code(s): Z86.010 - Personal history of colonic polyps Status: Acute Assessment and Plan: Patient has history of adenomatous colon polyp removed from the colon 2013. Plan is for screening colonoscopy now and consider this a 5 year intervals in the future. (2) Morbid obesity with BMI of 50.0-59.9, adult: Code(s): E66.01 - Morbid (severe) obesity due to excess calories; Z68.43 - Body mass index [BMI] 50.0-59.9, adult Status: Acute Assessment and Plan: Patient is is status post gastric bypass. Calorie restriction increase activity or encourage. GI Consult Note Consult date/time: 07/30/21 07:49 HPI: Mary Lou Reed is a 65 year old female Presents for screening colonoscopy. Patient has a history of adenomatous colon polyp removed from the colon in 2013. Patient's current weight appetite bowel movements are normal. Patient denies abdominal pain. She has had no bleeding. Family history is noncontributory. Patient reports in the last 5 years has undergone gastric bypass surgery. She has experienced no significant colon issues recently. 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 Spiritual care concerns: No Meds Home Medications and Allergies Home Medications Medication Instructions Recorded Confirmed Type buspirone 10 mg PO BID 05/22/21 07/30/21 History citalopram 20 mg PO DAILY 05/22/21 07/30/21 History ergocalciferol (vitamin D2) 100,000 unit PO WEEKLY 05/22/21 07/30/21 History hydrochlorothiazide 12.5 mg PO DAILY 05/22/21 07/30/21 History levothyroxine [Euthyrox] 175 mcg PO DAILY 05/22/21 07/30/21 History losartan 100 mg PO DAILY 05/22/21 07/30/21 History potassium chloride 10 meq PO BID 05/22/21 07/30/21 History zolpidem 10 mg PO HS 05/22/21 07/30/21 History multivitamin [A To Z Multivitamin] 1 tablet PO DAILY 07/17/21 07/30/21 History Allergies Allergy/AdvReac Type Severity Reaction Status Date / Time Penicillins Allergy Severe Unknown Verified 07/30/21 06:53 Sulfa (Sulfonamide Allergy Intermediate Rash Verified 07/30/21 06:53 Antibiotics) sulfamethoxazole Allergy Mild RASH Verified 07/30/21 06:53 trimethoprim Allergy Mild RASH Verified 07/30/21 06:53 Vital Signs Vital Signs - 24 hr 07/30/21 06:56 Temperature 97 F L Pulse Rate 72 Respiratory Rate 18 Blood Pressure 171/70 H Pulse Oximetry 98 Exam Narrative: Physical exam reveals patient be alert. Vital signs stable. HEENT exam is unremarkable. Patient is anicteric. Lungs are clear to auscultation and percussion. Heart is without murmur or extra sounds. Abdominal exam bowel sounds are present soft nontender no hepatosplenomegaly. She is somewhat obese. Digital external rectal exam is normal.
[2021-07-30 08:11] VITALS: BP 154/55; PULSE 74; RESP 18; O2SAT 98
[2021-07-30 08:21] VITALS: BP 116/49; PULSE 67; RESP 18; O2SAT 100
[2021-07-30 08:31] VITALS: BP 122/62; PULSE 81; RESP 18; O2SAT 94
== END 2021-07-30 08:41 | disposition home or self-care (01) ==
PROVIDERS: PCP Internal Medicine; Visit Provider Internal Medicine Gastroenterology
PROC: 0DJD8ZZ Inspection of Lower Intestinal Tract, Via Natural or Artificial Opening Endoscopic (ICD-10-PCS; CPT 45378; principal; 2021-07-30 08:00)
DX: Z12.11 Encounter for screening for malignant neoplasm of colon (principal); K63.5 Polyp of colon; K57.30 Diverticulosis of large intestine without perforation or abscess without bleeding; K64.8 Other hemorrhoids; I10 Essential (primary) hypertension; E78.5 Hyperlipidemia, unspecified; E11.9 Type 2 diabetes mellitus without complications; E55.9 Vitamin D deficiency, unspecified; F32.9 Major depressive disorder, single episode, unspecified; E66.01 Morbid (severe) obesity due to excess calories; Z68.43 Body mass index [BMI] 50.0-59.9, adult; Z98.84 Bariatric surgery status
CPT/HCPCS: 45385; 88305; J2704; J7120

== ENCOUNTER 2021-08-11 14:45 | Emergency (ER) | payer MEDICARE, SELFPAY ==
--- NOTE | ~2021-08-11 | XR_ITS ---
EXAMINATION: XR foot RT min 3V DATE: 08/11/2021 15:54 INDICATION: Right foot pain TECHNIQUE: Dorsoplantar, lateral, and 2 oblique views of the right foot were obtained. COMPARISON: None. FINDINGS: Bone alignment is normal. There is no fracture. 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 Posterior and plantar calcaneal enthesophytes are noted. There is soft tissue swelling of the ankle and dorsal foot. IMPRESSION: 1. No acute osseous abnormality. Reviewed, dictated and finalized at location A.
--- NOTE | ~2021-08-11 | XR_ITS ---
XR ankle RT min 3V DATE: 08/11/2021 15:55 INDICATION: Twisted ankle and foot from a fall. Pain at anterior ankle and foot TECHNIQUE: 4 views COMPARISON: None FINDINGS: Prominent plantar and particularly prominent posterior calcaneal enthesopathy. Mild linear periosteal reaction along the distal fibula and tibia are likely due to venous insufficie ncy. Less likely would be pulmonary osteoarthropathy. No fracture or dislocation of the ankle or disruption of the ankle mortise is detected. There is degenerative change at the tarsal and tarsometatarsal joints. IMPRESSION: Very prominent posterior and inferior calcaneal enthesopathy Mild linear periosteal reaction of the distal tibia and fibula, possibly due to venous insufficiency, less likely hypertrophic pulmonary osteoarthropathy Generalized soft tissue swelling of the ankle; no fracture or dislocation Reviewed, dictated and finalized at location B.
[2021-08-11 15:14] VITALS: BP 158/71; PULSE 80; RESP 20; TEMP 36.7; O2SAT 97
--- NOTE | 2021-08-11 15:23 | ED.LOWEXIN ---
HPI - Extremity Injury (Lower) General Chief Complaint: Extremity Injury, Lower Stated Complaint: fell this morning/rt ankle & ear pain Source: patient and RN notes reviewed Mode of arrival: wheelchair Limitations: no limitations History of Present Illness complaint: ankle injury, foot injury and fall Onset (ago): hour(s) (4) Injury: Right: ankle and foot Type of Injury: inversion Place: home Severity: moderate Relieving factors: nothing Exacerbating factors: weight bearing and movement Context: fall and walking Associated symptoms: swelling and able to partially bear weight Other symptoms: none Treatments prior to arrival: cold therapy Related Data Home Medications Medication Instructions Recorded Confirmed buspirone 10 mg PO BID 05/22/21 07/30/21 citalopram 20 mg PO DAILY 05/22/21 07/30/21 ergocalciferol (vitamin D2) 100,000 unit PO WEEKLY 05/22/21 07/30/21 hydrochlorothiazide 12.5 mg PO DAILY 05/22/21 07/30/21 levothyroxine [Euthyrox] 175 mcg PO DAILY 05/22/21 07/30/21 losartan 100 mg PO DAILY 05/22/21 07/30/21 potassium chloride 10 meq PO BID 05/22/21 07/30/21 zolpidem 10 mg PO HS 05/22/21 07/30/21 multivitamin [A To Z Multivitamin] 1 tablet PO DAILY 07/17/21 07/30/21 Allergies Allergy/AdvReac Type Severity Reaction Status Date / Time Penicillins Allergy Severe Unknown Verified 08/11/21 16:41 Sulfa (Sulfonamide Allergy Intermediate Rash Verified 08/11/21 16:41 Antibiotics) sulfamethoxazole Allergy Mild RASH Verified 08/11/21 16:41 trimethoprim Allergy Mild RASH Verified 08/11/21 16:41 Review of Systems Review of Systems: All systems reviewed & are unremarkable except as noted in HPI and below PMFSH Past Medical History Medical History Depression Diabetes Hyperlipidemia Hypertension Morbid obesity with BMI of 50.0-59.9, adult Vitamin D deficiency Surgical History Surgical History H/O total knee replacement Family History Family History Other Family history non-contributory Social History Social History Smoking status: Never smoker Alcohol intake: never Additional living arrangements comments: 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 Spiritual care concerns: No Exam Const: General: healthy appearing, no acute distress and alert Nutritional Appearance: well nourished and obese centrally obese Orientation/consciousness: patient oriented x3 HENMT: Head: normal to inspection Ears: external ears normal Mouth: Yes moist mucous membranes Eyes: General: appearance normal, both eyes and all related structures Conjunctivae: conjunctivae normal Pupils: Equal, round and reactive pupils present EOM: EOMs intact bilaterally Neck: Neck: normal visual inspection Resp: Effort & Inspection: normal respiratory effort Auscultation: clear to auscultation bilaterally Cardio: Rate: regular rate Rhythm: regular rhythm GI: GI Palp: Yes Soft to palpation, No Tenderness to palpation present (GI) and No Guarding due to palpation present (GI) Auscultation: normal bowel sounds Back/Spine/Pelvis: Cervical Spine: cervical ROM normal Thoracic/Lumbar Spine: thoraco-lumbar ROM normal Skin: General skin exam: normal color Rashes: no rashes Neuro: General: patient oriented x3, moves all extremities, no meningeal signs and no focal motor deficits Speech: normal speech Extrem: General: normal to inspection Right lower extremity: ankle Details: tenderness Location: of the medial malleolus and anteromedially, swelling Details: laterally and anteriorly and normal ROM and foot Details: tenderness Location: of the dorsal foot Location: proximally and medially and of the lateral foot Location: at the base of 5th metatarsal and edema Location: of the dorsal foot Psych: Appearance: grossly normal and well kempt M
[2021-08-11 16:42] VITALS: BP 164/64; PULSE 80; RESP 20; TEMP 36.7; O2SAT 100
== END 2021-08-11 16:50 | disposition home or self-care (01) ==
PROVIDERS: Emergency Provider Emergency Medicine; PCP Internal Medicine
DX: S93.401A Sprain of unspecified ligament of right ankle, initial encounter (principal); E11.9 Type 2 diabetes mellitus without complications; E78.5 Hyperlipidemia, unspecified; I10 Essential (primary) hypertension; E55.9 Vitamin D deficiency, unspecified
CPT/HCPCS: 73610; 73630; 99282; 99283; L4350

== ENCOUNTER 2021-10-22 09:02 | Outpatient (CLI) | payer MEDICARE, SELFPAY ==
[2021-10-22 09:26] LABS: Basophils Absolute Auto 0.05 K/mm3 (0.00-0.10); Basophils Percent Auto 0.8 % (0.0-1.0); Eosinophils Absolute Auto 0.22 K/mm3 (0.02-0.50); Eosinophils Percent Auto 3.3 % (1.0-6.0); Hematocrit 36.7 % (35.0-42.0); Hemoglobin 11.6 g/dL (11.7-13.8); Immature Granulocyte Absolute 0.03 K/mm3 (0.00-0.00); Immature Granulocyte Percent A 0.5 % (0.0-0.0); Lymphocytes Absolute Auto 0.99 K/mm3 (1.10-4.50); Mean Corpuscular HGB Conc 31.6 g/dL (32.0-36.0); Mean Corpuscular Hemoglobin 28.6 pg (27.0-31.0); Mean Corpuscular Volume 90.4 fL (78.0-102.0); Mean Platelet Volume 9.3 fl (9.2-11.8); Monocytes Absolute Auto 0.66 K/mm3 (0.10-0.90); Neutrophils Absolute Auto 4.7 K/mm3 (1.7-7.2); Neutrophils Percent Auto 70.4 % (50.0-70.0); Platelet Count Result 233 K/mm3 (150-420); Red Blood Count 4.06 M/mm3 (4.20-5.40); Red Cell Distribution Width 13.8 % (11.6-14.4); White Blood Count 6.6 K/mm3 (4.8-10.8)
[2021-10-22 09:29] LABS: Add Urine Microscopic? NO; Appearance Urine Clear (Clear); Bilirubin Urine Negative (Negative); Blood Urine Negative (Negative); Color Urine Light Yellow (Yellow); Glucose Urine UA Negative (Negative); Ketones Urine Negative (Negative); Leukocyte Esterase Ur Negative LEU/UL (Negative); Nitrate Urine Negative (Negative); Protein Urine Negative (Negative); Specific Grav Ur >= 1.030 (1.010-1.020); Urobilinogen Urine 0.2 mg/dL (0.2-1.0); pH Urine 5.5 (5.0-8.0)
[2021-10-22 09:57] LABS: Hemoglobin A1C 5.9 % (<5.7)
[2021-10-22 09:59] LABS: Creatinine Urine 128.74 mg/dL (40-278); Microalbumin Urine Random < 13.0 mg/L
[2021-10-22 10:27] LABS: Alanine Aminotransferase 19 U/L (14-59); Albumin Level 3.4 g/dL (3.4-5.0); Alkaline Phosphatase 111 U/L (46-116); Anion Gap 11 mmol/L (8-16); Aspartate Amino Transferase 11 U/L (15-37); Bilirubin,Total 0.4 mg/dL (0.00-1.00); Blood Urea Nitrogen 22 mg/dL (7-18); Calcium 8.8 mg/dL (8.5-10.1); Carbon Dioxide 28 mmol/L (21-32); Chloride 103 mmol/L (98-108); Cholesterol 237 mg/dL (0-200); Creatine Kinase 36 U/L (26-192); Estimated Glomerular Filt Rate > 60; Free T3 2.44 pg/mL (2.18-3.98); Free T4 Free Thyroxine 0.96 ng/dL (0.76-1.46); Glucose 102 mg/dL (70-99); HDL Direct 52 mg/dL (40-60); LDL Cholesterol Calculated 161 mg/dL (<130); Osmolality Calculated 297 mOsm/kg (285-295); Potassium 4.2 mmol/L (3.5-5.1); Sodium 142 mmol/L (136-145); Thyroid Stimulating Hormone 3.81 uIU/mL (0.36-3.74); Total Protein 7.6 g/dL (6.4-8.2); Triglycerides 122 mg/dL (0-150)
[2021-10-27 10:04] LABS: Vitamin D 25 Hydroxy 46 ng/mL (30-100)
== END 2021-10-22 09:03 | disposition home or self-care (01) ==
LOC: CHSLAB 09:04
PROVIDERS: PCP Internal Medicine; Visit Provider Internal Medicine
DX: E03.4 Atrophy of thyroid (acquired) (principal); I10 Essential (primary) hypertension; E78.5 Hyperlipidemia, unspecified; E11.9 Type 2 diabetes mellitus without complications; N39.0 Urinary tract infection, site not specified; E55.9 Vitamin D deficiency, unspecified
CPT/HCPCS: 36415; 80053; 80061; 81003; 82043; 82306; 82550; 83036; 84439; 84443; 84481; 85025

== ENCOUNTER 2022-04-30 10:15 | Outpatient (CLI) | payer MEDICARE, SELFPAY ==
[2022-04-30 10:42] LABS: Basophils Absolute Auto 0.05 K/mm3 (0.00-0.10); Basophils Percent Auto 0.6 % (0.0-1.0); Eosinophils Absolute Auto 0.18 K/mm3 (0.02-0.50); Eosinophils Percent Auto 2.1 % (1.0-6.0); Hematocrit 35.8 % (35.0-42.0); Hemoglobin 11.5 g/dL (11.7-13.8); Immature Granulocyte Absolute 0.03 K/mm3 (0.00-0.00); Immature Granulocyte Percent A 0.3 % (0.0-0.0); Lymphocytes Absolute Auto 1.05 K/mm3 (1.10-4.50); Lymphocytes Percent Auto 12.1 % (18.0-42.0); Mean Corpuscular HGB Conc 32.1 g/dL (32.0-36.0); Mean Corpuscular Hemoglobin 28.5 pg (27.0-31.0); Mean Corpuscular Volume 88.8 fL (78.0-102.0); Mean Platelet Volume 9.7 fl (9.2-11.8); Monocytes Percent Auto 9.2 % (2.0-11.0); Neutrophils Absolute Auto 6.5 K/mm3 (1.7-7.2); Neutrophils Percent Auto 75.7 % (50.0-70.0); Platelet Count Result 235 K/mm3 (150-420); Red Blood Count 4.03 M/mm3 (4.20-5.40); Red Cell Distribution Width 14.3 % (11.6-14.4); White Blood Count 8.7 K/mm3 (4.8-10.8)
[2022-04-30 10:52] LABS: Creatinine Urine 146.07 mg/dL (40-278); MALB Creatinine Ratio 8.8 mg/g (0-30); Microalbumin Urine Random < 13.0 mg/L
[2022-04-30 10:54] LABS: Appearance Urine Clear (Clear); Bilirubin Urine Negative (Negative); Color Urine Light Yellow (Yellow); Glucose Urine UA Negative (Negative); Ketones Urine Negative (Negative); Leukocyte Esterase Ur Negative LEU/UL (Negative); Nitrate Urine Negative (Negative); Protein Urine Negative (Negative); Specific Grav Ur 1.025 (1.010-1.020); Urobilinogen Urine 0.2 mg/dL (0.2-1.0)
[2022-04-30 11:00] LABS: Add Urine Microscopic? YES; Blood Urine Trace-Intact (Negative); RBC Urine 0-2 /hpf (0-2); Squamous Epithelial Cell Urine Few /hpf (Few); WBC Urine None seen /hpf (0-3)
[2022-04-30 11:01] LABS: Bacteria Urine 1+ /hpf
[2022-04-30 11:08] LABS: Alanine Aminotransferase 23 U/L (14-59); Albumin Level 3.3 g/dL (3.4-5.0); Alkaline Phosphatase 100 U/L (46-116); Anion Gap 5 mmol/L (8-16); Aspartate Amino Transferase 12 U/L (15-37); Bilirubin,Total 0.4 mg/dL (0.00-1.00); Blood Urea Nitrogen 20 mg/dL (7-18); Carbon Dioxide 30 mmol/L (21-32); Chloride 103 mmol/L (98-108); Cholesterol 156 mg/dL (0-200); Creatine Kinase 44 U/L (26-192); Estimated Glomerular Filt Rate > 60; Free T4 Free Thyroxine 1.08 ng/dL (0.76-1.46); Glucose 111 mg/dL (70-99); HDL Direct 51 mg/dL (40-60); LDL Cholesterol Calculated 87 mg/dL (<130); Osmolality Calculated 289 mOsm/kg (285-295); Sodium 138 mmol/L (136-145); Thyroid Stimulating Hormone 4.88 uIU/mL (0.36-3.74); Total Protein 8.2 g/dL (6.4-8.2); Triglycerides 89 mg/dL (0-150)
[2022-04-30 11:17] LABS: Hemoglobin A1C 6.2 % (<5.7)
[2022-05-05 14:04] LABS: Vitamin D 25 Hydroxy 65 ng/mL (30-100)
== END 2022-04-30 10:16 | disposition home or self-care (01) ==
LOC: CHSLAB 10:17
PROVIDERS: PCP Internal Medicine; Visit Provider Internal Medicine
DX: E03.9 Hypothyroidism, unspecified (principal); I10 Essential (primary) hypertension; E11.9 Type 2 diabetes mellitus without complications; E78.5 Hyperlipidemia, unspecified; N39.0 Urinary tract infection, site not specified; E55.9 Vitamin D deficiency, unspecified
CPT/HCPCS: 36415; 80053; 80061; 81001; 82043; 82306; 82550; 83036; 84439; 84443; 85025

== ENCOUNTER 2022-07-01 12:48 | Outpatient (CLI) | payer MEDICARE, SELFPAY ==
--- NOTE | ~2022-07-01 | MM_ITS ---
EXAMINATION: MM screening [facility] BI w blu HISTORY: Screening mammogram TECHNIQUE: Craniocaudal and mediolateral oblique 3-D tomosynthesis images were obtained and synthetic 2-D images were generated. CAD analysis was submitted and interpreted. COMPARISON: 06/11/2021, 02/06/2015 BREAST PARENCHYMAL COMPOSITION: There are scattered areas of fibroglandular density. FINDINGS: Numerous benign calcifications scattered throughout both breasts. There is no evidence of s uspicious mass, calcification, or architectural distortion to suggest malignancy in either breast. Th ere has been no suspicious interval change. IMPRESSION: 1. No mammographic evidence of malignancy. 2. Recommend routine screening mammography in one year. BI-RADS Category 2: Benign finding(s). Reviewed, dictated and finalized at location A.
== END 2022-07-01 12:49 | disposition home or self-care (01) ==
LOC: CHSIMG 12:50
PROVIDERS: PCP Internal Medicine; Visit Provider Internal Medicine
DX: Z12.31 Encounter for screening mammogram for malignant neoplasm of breast (principal)
CPT/HCPCS: 77063; 77067

== ENCOUNTER 2022-08-28 14:39 | Emergency (ER) | payer MEDICARE, SELFPAY ==
--- NOTE | ~2022-08-28 | CT_ITS ---
EXAMINATION: CT abdomen pelvis wo con DATE: 08/28/2022 17:08 INDICATION: LEFT FLANK PAIN X 2 DAYS. TECHNIQUE: Computed tomography (CT) of the abdomen and pelvis was performed without intravenous contr ast. Automated exposure control and iterative reconstruction technique were employed. The dose-length product was 1415.13 mGy-cm. COMPARISON: None. FINDINGS: Lower thorax: Left lower lobe granuloma with adjacent scar. Mild coronary calcifications. Liver: Normal. Biliary/Gallbladder: Gallbladder is normal. No bile duct dilation. Pancreas: No mass or duct dilation. Spleen: Granulomatous calcifications Adrenals:No mass. Kidneys: Mild left perinephric stranding. Mild left hydronephrosis. GI tract: Prior gastric surgery. No small or large bowel dilation. Normal-appearing small appendix ve rsus appendiceal stump. Mesentery/Peritoneum: No ascites, mass, or free air. Retroperitoneum: No mass. Atherosclerotic abdominal aortic and/or arterial calcifications. Pelvis: 5 mm stone in the distal left ureter. Atrophic uterus. Soft Tissues: Soft tissues and body wall unremarkable. Bones: No acute osseous finding. IMPRESSION: 5 mm distal left ureteral stone causing mild obstructive uropathy. Reviewed, dictated and finalized at location K.
--- NOTE | 2022-08-28 14:48 | ED.FEMALEGU ---
HPI - Female Genitourinary General Chief complaint: Urogenital-Female Stated complaint: pressure/discomfort on bladder and kidney Time Seen by Provider: 08/28/22 14:47 History of Present Illness HPI Narrative: 66-year-old female with a history of obesity, hypertension, dyslipidemia, diabetes mellitus presents to the ER with --dysuria -- left flank pain no fever or chills no nausea/ vomiting/ diarrhea MD elicited complaint: dysuria, UTI and flank pain Pertinent past history: diabetes Onset (ago): day(s) ( started 2 days ago) Severity: moderate Quality of pain: cramping Consistency: intermittent Urinary symptoms: Dysuria Exacerbating factors: none Relieving factors: none Associated symptoms: denies other symptoms Treatment prior to arrival: none Related Data Home Medications Medication Instructions Recorded Confirmed buspirone 10 mg tablet 10 mg PO BID 05/22/21 08/28/22 citalopram 40 mg tablet 20 mg PO DAILY 05/22/21 08/28/22 hydrochlorothiazide 12.5 mg tablet 12.5 mg PO DAILY 05/22/21 08/28/22 levothyroxine 175 mcg tablet 175 mcg PO DAILY 05/22/21 08/28/22 (Euthyrox) losartan 100 mg tablet 100 mg PO DAILY 05/22/21 08/28/22 potassium chloride 10 mEq 10 meq PO BID 05/22/21 08/28/22 tablet,extended release zolpidem 10 mg tablet 10 mg PO HS 05/22/21 08/28/22 multivitamin 1 tablet PO DAILY 07/17/21 08/28/22 atorvastatin 20 mg tablet 20 mg PO DAILY 08/28/22 08/28/22 Allergies Allergy/AdvReac Type Severity Reaction Status Date / Time Penicillins Allergy Severe Unknown Verified 08/28/22 16:14 Sulfa (Sulfonamide Allergy Intermediate Rash Verified 08/28/22 16:14 Antibiotics) sulfamethoxazole Allergy Mild RASH Verified 08/28/22 16:14 trimethoprim Allergy Mild RASH Verified 08/28/22 16:14 Review of Systems Review of Systems: All systems reviewed & are unremarkable except as noted in HPI and below Constitutional: Constitutional: Reports as per HPI and Reports no additional constitutional complaints Eyes: Eyes: Reports as per HPI and Reports no additional eye complaints ENT: Reports system reviewed and no additional complaints, except as documented and Reports as per HPI Cardiovascular: Cardiovascular: Reports as per HPI and Reports no additional cardiovascular complaints Respiratory: Respiratory: Reports as per HPI and Reports no additional respiratory complaints Gastrointestinal: Gastrointestinal: Reports as per HPI and Reports no additional gastrointestinal complaints Genitourinary: Genitourinary: Reports no additional female genitourinary complaints, Reports nocturia, Reports dysuria and Reports flank pain Musculoskeletal: Musculoskeletal: Reports no additional musculoskeletal complaints and Reports as per HPI Integumentary/Breasts: Skin/Breast: Reports system reviewed and no additional complaints, except as docu and Reports as per HPI Neurologic: Reports system reviewed and no additional complaints, except as documented and Reports as per HPI Psychiatric: Psychiatric: Reports no additional psychiatric complaints and Reports as per HPI Endocrine: Endocrine: Reports no additional endocrine complaints and Reports as per HPI Hematologic/Lymphatic: Hematologic/Lymphatic: Reports no additional hematologic/lymphatic complaints and Reports as per HPI Allergic/Immunologic: Allergic/Immunologic: Reports no additional allergic/immunologic complaints and Reports as per HPI PMFSH Past Medical History Medical History Depression Diabetes Hyperlipidemia Hypertension Morbid obesity with BMI of 50.0-59.9, adult Vitamin D deficiency Surgical History Surgical History H/O total knee replacement Family History Family History Other Family history non-contributory Social History Social History (Reviewed 08/28/22 @ 15:11 by Torrey Prescott,
[2022-08-28 14:56] VITALS: BP 191/82; PULSE 78; RESP 20; TEMP 36.2; O2SAT 99
[2022-08-28 15:18] LABS: Add Urine Microscopic? YES; Appearance Urine Clear (Clear); Bilirubin Urine Negative (Negative); Blood Urine 3+ (Negative); Color Urine Brown (Yellow); Glucose Urine UA Negative (Negative); Ketones Urine Negative (Negative); Leukocyte Esterase Ur Trace (Negative); Nitrate Urine Negative (Negative); Protein Urine 1+ (Negative); Specific Grav Ur 1.025 (1.010-1.020); Urobilinogen Urine 0.2 mg/dL (0.2-1.0)
[2022-08-28 15:24] LABS: Bacteria Urine 1+ /hpf; Mucus Urine Few /lpf; RBC Urine >75 /hpf (0-2); Squamous Epithelial Cell Urine Few /hpf (Few); WBC Urine None seen /hpf (0-3)
[2022-08-28 15:54] VITALS: BP 153/47; PULSE 65; RESP 18; O2SAT 98
[2022-08-28 15:55] LABS: Basophils Absolute Auto 0.08 K/mm3 (0.00-0.10); Basophils Percent Auto 0.8 % (0.0-1.0); Eosinophils Absolute Auto 0.28 K/mm3 (0.02-0.50); Eosinophils Percent Auto 2.9 % (1.0-6.0); Hematocrit 38.4 % (35.0-42.0); Immature Granulocyte Absolute 0.04 K/mm3 (0.00-0.00); Immature Granulocyte Percent A 0.4 % (0.0-0.0); Lymphocytes Absolute Auto 1.24 K/mm3 (1.10-4.50); Lymphocytes Percent Auto 12.9 % (18.0-42.0); Mean Corpuscular HGB Conc 28.6 g/dL (32.0-36.0); Mean Corpuscular Hemoglobin 28.1 pg (27.0-31.0); Mean Corpuscular Volume 98.2 fL (78.0-102.0); Mean Platelet Volume 10.5 fl (9.2-11.8); Monocytes Absolute Auto 0.99 K/mm3 (0.10-0.90); Monocytes Percent Auto 10.3 % (2.0-11.0); Neutrophils Percent Auto 72.7 % (50.0-70.0); Platelet Count Result 218 K/mm3 (150-420); Red Blood Count 3.91 M/mm3 (4.20-5.40); Red Cell Distribution Width 14.6 % (11.6-14.4); White Blood Count 9.6 K/mm3 (4.8-10.8)
[2022-08-28 16:09] LABS: Alanine Aminotransferase 13 U/L (14-59); Albumin Level 3.1 g/dL (3.4-5.0); Alkaline Phosphatase 99 U/L (46-116); Anion Gap 10 mmol/L (8-16); Aspartate Amino Transferase 10 U/L (15-37); Bilirubin,Total 0.2 mg/dL (0.00-1.00); Blood Urea Nitrogen 23 mg/dL (7-18); Calcium 8.8 mg/dL (8.5-10.1); Carbon Dioxide 24 mmol/L (21-32); Chloride 108 mmol/L (98-108); Glucose 93 mg/dL (70-99); Osmolality Calculated 297 mOsm/kg (285-295); Potassium 3.7 mmol/L (3.5-5.1); Sodium 142 mmol/L (136-145); Total Protein 7.6 g/dL (6.4-8.2)
[2022-08-28 16:11] LABS: Estimated CRCL calculation 318 ml/min; Estimated Glomerular Filt Rate > 60
[2022-08-28 16:14] LABS: Lactic Acid Reflex 1.1 mmol/L (0.4-2.0)
[2022-08-28 17:59] VITALS: BP 171/79; PULSE 88; RESP 20; TEMP 36.5; O2SAT 99
[2022-08-28] MEDS: TAMSULOSIN HCL 0.4 MG CAPSULE PO (18:15)
--- NOTE | 2022-08-28 18:23 | PC.NURSE ---
On 08/28/22, the student, [kiera cool ], provided care and completed [facility] documentation on this patient. I have reviewed the student's documentation and agree with the findings.
[2022-08-28 18:24] VITALS: BP 170/72; PULSE 98; RESP 20; TEMP 36.8; O2SAT 100
== END 2022-08-28 18:30 | disposition home or self-care (01) ==
PROVIDERS: Emergency Provider Internal Medicine Critical Care Medicine; PCP Internal Medicine
DX: N20.1 Calculus of ureter (principal); E11.9 Type 2 diabetes mellitus without complications; E78.5 Hyperlipidemia, unspecified; I10 Essential (primary) hypertension; E55.9 Vitamin D deficiency, unspecified
CPT/HCPCS: 36415; 74176; 80053; 81001; 83605; 85025; 99284; A9270

== ENCOUNTER 2022-10-21 09:56 | Outpatient (CLI) | payer MEDICARE, SELFPAY ==
[2022-10-21 10:19] LABS: Basophils Absolute Auto 0.04 K/mm3 (0.00-0.10); Basophils Percent Auto 0.5 % (0.0-1.0); Eosinophils Absolute Auto 0.27 K/mm3 (0.02-0.50); Eosinophils Percent Auto 3.3 % (1.0-6.0); Hematocrit 33.3 % (35.0-42.0); Hemoglobin 10.5 g/dL (11.7-13.8); Immature Granulocyte Absolute 0.03 K/mm3 (0.00-0.00); Immature Granulocyte Percent A 0.4 % (0.0-0.0); Lymphocytes Percent Auto 13.6 % (18.0-42.0); Mean Corpuscular HGB Conc 31.5 g/dL (32.0-36.0); Mean Corpuscular Hemoglobin 28.1 pg (27.0-31.0); Mean Platelet Volume 9.7 fl (9.2-11.8); Monocytes Percent Auto 8.7 % (2.0-11.0); Neutrophils Percent Auto 73.5 % (50.0-70.0); Platelet Count Result 225 K/mm3 (150-420); Red Blood Count 3.74 M/mm3 (4.20-5.40); Red Cell Distribution Width 14.7 % (11.6-14.4); White Blood Count 8.1 K/mm3 (4.8-10.8)
[2022-10-21 10:26] LABS: Bilirubin Urine Negative (Negative); Color Urine Yellow (Yellow); Glucose Urine UA Negative (Negative); Ketones Urine Negative (Negative); Leukocyte Esterase Ur Negative LEU/UL (Negative); Nitrate Urine Negative (Negative); Protein Urine Negative (Negative); Specific Grav Ur 1.025 (1.010-1.020); Urobilinogen Urine 0.2 mg/dL (0.2-1.0)
[2022-10-21 10:35] LABS: Hemoglobin A1C 6.1 % (<5.7)
[2022-10-21 10:40] LABS: Add Urine Microscopic? YES; Appearance Urine Slightly Cloudy (Clear); Blood Urine Trace-Intact (Negative); RBC Urine None seen /hpf (0-2); Squamous Epithelial Cell Urine Moderate /hpf (Few); WBC Urine None seen /hpf (0-3)
[2022-10-21 10:41] LABS: Bacteria Urine 1+ /hpf
[2022-10-21 10:47] LABS: Creatinine Urine 172.69 mg/dL (40-278); MALB Creatinine Ratio 12.1 mg/g (0-30); Microalbumin Urine Random 20.9 mg/L
[2022-10-21 11:07] LABS: Alanine Aminotransferase 20 U/L (14-59); Albumin Level 3.4 g/dL (3.4-5.0); Alkaline Phosphatase 91 U/L (46-116); Anion Gap 7 mmol/L (8-16); Aspartate Amino Transferase 13 U/L (15-37); Bilirubin,Total 0.4 mg/dL (0.00-1.00); Blood Urea Nitrogen 20 mg/dL (7-18); Calcium 8.7 mg/dL (8.5-10.1); Carbon Dioxide 31 mmol/L (21-32); Chloride 105 mmol/L (98-108); Cholesterol 154 mg/dL (0-200); Creatine Kinase 39 U/L (26-192); Estimated Glomerular Filt Rate 60; Free T3 1.77 pg/mL (2.18-3.98); Glucose 110 mg/dL (70-99); HDL Direct 49 mg/dL (40-60); LDL Cholesterol Calculated 84 mg/dL (<130); Osmolality Calculated 299 mOsm/kg (285-295); Potassium 4.2 mmol/L (3.5-5.1); Sodium 143 mmol/L (136-145); Thyroid Stimulating Hormone 13.67 uIU/mL (0.36-3.74); Total Protein 7.7 g/dL (6.4-8.2); Triglycerides 104 mg/dL (0-150)
[2022-10-25 15:45] LABS: Vitamin D 25 Hydroxy 53 ng/mL (30-100)
== END 2022-10-21 09:57 | disposition home or self-care (01) ==
LOC: CHSLAB 09:59
PROVIDERS: PCP Internal Medicine; Visit Provider Internal Medicine
DX: E03.9 Hypothyroidism, unspecified (principal); I10 Essential (primary) hypertension; E78.2 Mixed hyperlipidemia; E11.9 Type 2 diabetes mellitus without complications; N39.0 Urinary tract infection, site not specified; E55.9 Vitamin D deficiency, unspecified
CPT/HCPCS: 36415; 80053; 80061; 81001; 82043; 82306; 82550; 83036; 84439; 84443; 84481; 85025

== ENCOUNTER 2023-01-28 13:13 | Outpatient (CLI) | payer MEDICARE, SELFPAY ==
[2023-01-28 14:36] LABS: Free T3 1.37 pg/mL (2.18-3.98); Free T4 Free Thyroxine 0.63 ng/dL (0.76-1.46); Thyroid Stimulating Hormone 14.52 uIU/mL (0.36-3.74)
== END 2023-01-28 13:14 | disposition home or self-care (01) ==
PROVIDERS: PCP Internal Medicine; Visit Provider Internal Medicine
DX: E03.9 Hypothyroidism, unspecified (principal)
CPT/HCPCS: 36415; 84439; 84443; 84481

== ENCOUNTER 2023-11-16 12:34 | Outpatient (CLI) | payer MEDICARE, SELFPAY ==
--- NOTE | ~2023-11-16 | US_ITS ---
EXAMINATION: US art doppler w ene CARDOSO DATE: 11/16/2023 13:55 INDICATION: Peripheral arterial occlusive disease to the bilateral lower limbs TECHNIQUE: Segmental pressures and plethysmographic and Doppler waveforms of the brachial and lower e xtremity arteries were obtained. COMPARISON: None. FINDINGS: Right and left brachial artery pressures of 156 mm Hg and 151 mm Hg, respectively, are concordant (no rmal difference <= 30 mmHg). The right ankle-brachial index (IGNACIO) is 1.04 (normal >= 0.9-1.0). The right great toe-brachial index (TBI) is indeterminate with pressure unable to be obtained at the right great toe (normal >= 0.65). A rterial Doppler waveforms are triphasic at the right common femoral and biphasic with normal systolic upstrokes at both right posterior tibial and dorsalis pedis arteries. The left IGNACIO is 1.03. The left TBI is 0.74. Arterial Doppler waveforms are triphasic at the left comm on femoral artery and biphasic with normal systolic upstrokes at both left posterior tibial and dorsa lis pedis arteries. IMPRESSION: 1. No significant arterial occlusive disease to either lower limb with normal bilateral ABIs. Reviewed, dictated and finalized at location A. 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 No significant arterial occlusive disease to either lower limb with normal b ilateral ABIs.
--- NOTE | ~2023-11-16 | MM_ITS ---
EXAMINATION: MM screening petty BI w blu HISTORY: Screening mammogram TECHNIQUE: Craniocaudal and mediolateral oblique 3-D tomosynthesis images were obtained and synthetic 2-D images were generated. CAD analysis was submitted and interpreted. COMPARISON: 07/01/2022, 06/11/2021, 02/06/2015 BREAST PARENCHYMAL COMPOSITION: There are scattered areas of fibroglandular density. FINDINGS: Scattered benign-appearing calcifications are present. No suspicious mass, calcification, o r architectural distortion are identified in either breast to suggest malignancy. There has been no s uspicious interval change. IMPRESSION: 1. No mammographic evidence of malignancy. 2. Recommend routine screening mammography in one year. BI-RADS Category 2: Benign finding(s). Reviewed, dictated and finalized at location A. AGE PERSON
== END 2023-11-16 12:35 | disposition home or self-care (01) ==
LOC: CHSIMG 12:35
PROVIDERS: PCP Internal Medicine; Visit Provider Internal Medicine
DX: Z12.31 Encounter for screening mammogram for malignant neoplasm of breast (principal); I73.9 Peripheral vascular disease, unspecified
CPT/HCPCS: 77063; 77067; 93923

== ENCOUNTER 2024-05-24 11:06 | Outpatient (CLI) | payer MEDICARE, SELFPAY ==
--- NOTE | ~2024-05-24 | XR_ITS ---
AP and lateral views of the bilateral hips Clinical history: Pain Findings: No acute fracture or dislocation is seen. Osseous alignment is anatomic. There is mild dege nerative change of both hip joints. Soft tissues are unremarkable. Impression: Mild degenerative change of both hip joints. Reviewed, dictated and finalized at location . Impression: Mild degenerative change of both hip joints.
== END 2024-05-24 11:07 | disposition home or self-care (01) ==
LOC: CHSIMG 11:11
PROVIDERS: PCP Internal Medicine; Visit Provider Internal Medicine
DX: M25.552 Pain in left hip (principal); M25.551 Pain in right hip
CPT/HCPCS: 73521

== ENCOUNTER 2025-06-10 14:18 | Outpatient (CLI) | payer MEDICARE, SELFPAY ==
--- NOTE | ~2025-06-10 | MM_ITS ---
EXAMINATION: MM screening petty BI w blu HISTORY: Screening TECHNIQUE: Craniocaudal and mediolateral oblique 3-D tomosynthesis images were obtained and synthetic 2-D images were generated. CAD analysis was submitted and interpreted. COMPARISON: Comparison to multiple prior studies sequentially, with oldest reviewed study dated 06/11. BREAST PARENCHYMAL COMPOSITION: Not dense: There are scattered areas of fibroglandular density. FINDINGS: There is no evidence of suspicious mass, calcification, or architectural distortion to sugg est malignancy in either breast. There has been no suspicious interval change. IMPRESSION: 1. No mammographic evidence of malignancy. 2. Recommend routine screening mammography in one year. BI-RADS Category 1: Negative Reviewed, dictated and finalized at location B.
--- OUTSIDE RECORDS SUMMARY | 2025-06-10 14:24 | XMS_ITS | Referral Summary ---
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 02/12/20 16 Active citalopram (CeleXA) 40 mg tabletIndications: Anxiety with Depression Take 20 mg by mouth every morning. 02/12/20 16 Active cyanocobalamin (Vitamin B-12) 1,000 mcg sublingual tabletIndications: Prevention of Vitamin B12 Deficiency [address] 1,000 mcg under the tongue every morning Active ergocalciferol (VITAMIN D) 50,000 unit capsuleIndications :Vitamin D Deficiency Take 1 capsule (50,000 Units total) by mouth once a week. TAKE 1 CAPSULE ONCE A WEEK FOR 12 WEEKS, THEN FOLLOW UP WITH YOUR PCP. 12 capsule 09/19/20 18 Active Additional Information Patient taking differently:50,000 Units oral2 times weekly, Take on Tuesday and tuesday. TAKE CAPSULE ONCE A WEEK FOR 12 WEEKS, THEN FOLLOW UP WITH YOUR PCP., Indications: Vitamin D Deficiency, Informant: Self, Reported on 10/03/2019 zolpidem (AMBIEN) 10 mg tabletIndications: Sleep-Onset Insomnia Take 1 tablet (10 mg total) by mouth nightly as needed for sleep. at bedtime. 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 Active terbinafine (LamiSIL) 250 mg tabletIndications: toe fungus Take 250 mg by mouth every morning 1 05/18/20 19 Active losartan (COZAAR) 50 mg tabletIndications: hypertension Take 50 mg by mouth every morning 0 08/18/20 19 Active hydroCHLOROthiazid e (HYDRODIURIL) 12.5 mg tabletIndications: hypertension Take 12.5 mg by mouth every morning 0 08/18/20 19 Active multivitamin capsuleIndications :Vitamin Deficiency Prevention Take 1 capsule by mouth every morning Active diphenhydrAMINE (BENADRYL) 25 mg capsule Take 25 mg by mouth every 6 (six) hours as needed for allergies Active aspirin 325 mg tabletIndications: prevention of thrombosis Take 1 tablet (325 mg total) by mouth 2 (two) times a day 84 tablet 11/01/20 19 Active Active Problems Problem Noted Date Diagnosed Date Arthrofibrosis of knee joint, right 09/04/2019 Overview (09/04/2019): Added automatically from request for surgery [id number] Arthrofibrosis of knee joint, unspecified latera lity 05/15/2019 Overview (05/15/2019): Added automatically from request for surgery [id number] Primary osteoarthritis of left knee 12/06/2018 Overview (12/06/2018): Added automatically from request for surgery [id number] Vitamin D deficiency 10/06/2018 Primary osteoarthritis of right knee 08/23/2018 Overview (08/23/2018): Added automatically from request for surgery [id number] Morbid obesity 05/22/2018 Bariatric surgery status 05/22/2018 Hypertension 05/22/2018 Hyperlipidemia 05/22/2018 Diabetes mellitus 05/22/2018 Intestinal malabsorption 01/16/2018 Anxiety 06/02/2016 Benign essential hypertension 02/12/2016 Anaclitic depression 02/12/2016 Immunizations Immunization Administration Dates Next Due Influenza, Quadrivalent, Spl it, Intramuscular 10/01/2016 Influenza, Quadrivalent, Spl it, Preservative Free, Intramuscular 01/20/2019,10/21/2017 Influenza, Trivalent, IM (MDV) 4,09/12/2013,09/14/2012,09/13 Influenza, Unspecified 09/14/2017 Pneumococcal Conjugate PCV 13 04/26/2015 Pneumococcal Polysaccharide PPV23 10/15/2014 ZOSTER LIVE 10/15/2014 Social History Tobacco Use Types Packs/Day Years Used Date Smoking Tobacco: Never Smokeless Tobacco: Never Alcohol Use Standard Drinks/Week Comments No 0 (1 standard drink = 0.6 oz pur e alcohol) Overall Financial Resource Strain (CARDIA) Answe r Date Recorded How hard is it for you to pa y for the very basics like food, housing, medical care, and heating? Patient declined 01/31/2020 Hunger Vital Sign Answer Date Recorded Within the past 12 months, y ou worried that your food would run out before you got the money to buy more. Patient declined Within the past 12 months, t he food you bought just didn't last and you didn't have money to get more. Patient declined PRAPARE - Transportation Answer Date Re corded In the past 12 months, has l ack of transportation kept you from medical appointments or from getting medications? Patient declined 01/31/2020 In the past 12 months, has l ack of transportation kept you from meetings, work, or from getting things needed for daily living? 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 Not on file Not on file Not on file Last Filed Vital Signs Vital Sign Reading Time Taken Comments Blood Pressure 125/52 01/02/2020 1:00 PM INSTRUMENTATION SPECIALIST Pulse 61 01/02/2020 1:10 PM INSTRUMENTATION SPECIALIST Temperature 36.5 C (97.7 F) 01/31/2020 1:57 PM CDT Respiratory Rate 9 01/02/2020 10:1 0 AM INSTRUMENTATION SPECIALIST Oxygen Saturation 97% 01/02/2020 1:10 PM INSTRUMENTATION SPECIALIST Inhaled Oxygen Concentration - - Weight 108.7 kg (239 lb 9.6 oz) 020 11:16 AM INSTRUMENTATION SPECIALIST Height 156.2 cm (5' 1.5) 12/24/2019 11 :16 AM INSTRUMENTATION SPECIALIST Body Mass Index 44.54 12/24/2019 11:16 AM INSTRUMENTATION SPECIALIST Plan of Treatment Not on file Medical Devices Implanted Type Area Stone Cutter Device Identifier Shelf Expiration Date Model / Serial / Lot [employer] [id number] Persona Cruciate Retain Knee Right 5 Standard Component Femoral - [id number] Implanted:Qty: 1 on 10/11/2018 by Gerhard Khan MD at [facility] Right: Knee [employer] [id number] 06/13/2026 [id number] / / [id number] [employer] [id number] Persona 13mm Cruciate Retain Knee Right 4-5 Cd Insert Articular Latex Free - [id number] Implanted:Qty: 1 on 10/11/2018 by Gerhard Khan MD at [facility] Right: Knee [employer] [id number] 07/14/2020 [id number] / / [id number] [employer] [id number] Persona 2 Peg Knee Right D Baseplate Tibial Trabecular Metal - [id number] Implanted:Qty: 1 on 10/11/2018 by Gerhard Khan MD at [facility] Right: Knee [employer] [id number] 01/12/2028 [id number] / / [id number] [employer] [id number] Persona 12mm Knee Left 6-7 C-D Insert Articular Vivacit-E Sterile - [id number] Implanted:Qty: 1 on 01/19/2019 by Gerhard Khan MD at [facility] Left: Knee [employer] [id number] 04/13/2021 [id number] / / [id number] [employer] [id number] Persona 2 Peg Knee Left D Baseplate Tibial Trabecular Metal - [id number] Implanted:Qty: 1 on 01/19/2019 by Gerhard Khan MD at [facility] Left: Knee [employer] 08/13/2028 [id number] / / [id number] [employer] [id number] Persona Cruciate Retaining Knee Left 6 Narrow Component Femoral - [id number] Implanted:Qty: 1 on 01/19/2019 by Gerhard Khan MD at [facility] Left: Knee [employer] 07/14/2028 [id number] / / [id number] [employer] [id number] Persona 11mm Knee Right 4-5 C-D Insert Articular Vivacit-E - [id number] Implanted:Qty: 1 on 10/31/2019 by Gerhard Khan MD at [facility] Right: Knee [employer] [id number] 02/11/2021 [id number] / / [id number] Insurance MEDICARE [place] [employer] [facility] ACCESS MEDICARE [facility] TRADITIONAL BLUE TRADITIONAL OOS Advance Directives For more information, please contact: [phone] * Full Code (Latest Code Status on File) Date Activated Date Inactivated Comments 10/31/2019 8:52 PM 11/02/2019 9:41 PM * Full Code Date Activated Date Inactivated Comments 05/25/2019 7:38 AM 05/25/2019 1:34 PM * Full Code Date Activated Date Inactivated Comments 01/19/2019 5:06 PM 01/20/2019 5:59 PM * Full Code Date Activated Date Inactivated Comments 10/11/2018 6:29 PM 10/12/2018 4:26 PM Care Teams Embossing Press Operator Relationship Specialty Start Date End Date Trey Posadas MD [address] [place] [address] PCP - General 03/11/17
--- OUTSIDE RECORDS SUMMARY | 2025-06-10 14:24 | XMS_ITS | Clinical Summary ---
Author Organization [facility] Address [address] [place] [address] [place] [address] Care Team Providers Care Engineering Lab Technician Name Role Phone Unavailable Primary Care Provider Unavailabl e Allergies Active Allergy Reactions Criticality Noted Date Comments Penicillin G 04/08/2005 Sulfamethoxazole 04/08/2005 04/08/2005-BACTRIM Medications SONATA 10 MG PO CAPS 1 tablet by mouth at bedtime 30 0 06/23/2006 Active MOBIC 7.5 MG PO TABS 1-2 PO QD prn 60 0 09/08/2005 Active zolpidem (AMBIEN) 10 MG tablet Take 1 tablet (10 mg) by mouth At bedtime as needed for Sleep Active losartan (COZAAR) 100 MG tablet Take 1 tablet (100 mg) by mouth daily Active potassium chloride (KLOR-CON) ER 10 MEQ tablet Take 1 tablet (10 mEq) by mouth 2 times daily (with meals) 02/23/2019 Active levothyroxine (SYNTHROID) 175 MCG tablet Take 1 tablet (175 mcg) by mouth every morning (before breakfast) Active fesoterodine (TOVIAZ) 4 MG tablet Take 1 tablet (4 mg) by mouth daily Active indapamide (LOZOL) 2.5 MG tablet Take 1 tablet (2.5 mg) by mouth every morning Active citalopram (CELEXA) 40 MG tablet Take 1.5 tablets (60 mg) by mouth daily Active atorvaSTATin (LIPITOR) 20 MG tablet Take 1 tablet (20 mg) by mouth daily Active ALPRAZolam (XANAX) 0.25 MG tablet Take 1 tablet (0.25 mg) by mouth every 8 (eight) hours if needed for Anxiety Active Active Problems Problem Noted Date Diagnosed Date Lymphedema 10/08/2024 Assessment & Plan (12/28/2024 3:54 PM EST): Assessment & Plan (11/27/2024 11:54 AM EST): Assessment & Plan (11/12/2024 1:20 PM EST): Assessment & Plan (11/09/2024 11:55 AM EST): Assessment & Plan (10/08/2024 2:02 PM EST): Bilateral hip pain 06/06/2024 Encounters Date Type Department Care Team Description 05/31/2025 12:40 PM EDT Lab/X-Ray Only [facility] [address] [place] [phone] Estelle Chen MD from Last 3 Months Immunizations Immunization Administration Dates Next Due Td 12/25/2003 Social History Tobacco Use Types Packs/Day Years Used Date Smoking Tobacco: Never Assessed Comments Unknown Sex and Gender Information Value Date Recorded Sex Assigned at Not on file 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 [employer] Gender Identity Not on file Sexual Orientation Not on file Last Filed Vital Signs Vital Sign Reading Time Taken Comments Blood Pressure 177/85 11/05/2024 3:08 PM EST Pulse 66 11/05/2024 3:08 PM EST Temperature 36.6 C (97.8 F) 11/05/2024 11:20 AM EST Respiratory Rate 15 11/05/2024 3:08 PM EST Oxygen Saturation 95% 11/05/2024 3:08 PM EST Inhaled Oxygen Concentration - - Weight 133.6 kg (294 lb 8 oz) 11/05/2024 11:20 A M EST Height 154.9 cm (5' 1) 11/05/2024 11:20 AM EST Body Mass Index 55.65 11/05/2024 11:20 AM EST Plan of Treatment Health Maintenance Due Date Last Done Comments Hepatitis C Screening ages 18 to 79 once 1955 Medicare Annual Wellness (AWV) 1954 DEPRESSION SCREENING 1966 BMI Above/Below Normal Parameters 1972 ADULT TETANUS 1973 BREAST CANCER SCREENING 1994 Colon Cancer Screening 1999 Zoster Vaccine (Recombinant Vaccine) (1 of 2) 2004 RSV Vaccines (1 - Risk 60-74 years 1-dose series) 2014 DEXA SCAN SCREENING 2019 Pneumococcal Vaccine: 50 and over (3 of 3 - PCV20 or PCV21) 04/26/2020 04/26/2015, 10/15/2014 COVID-19 Immunization ( - season) 2024 Influenza Vaccine 06/14/2025 01/20/2019, , 09/14/2017, Additional history exists Fall Risk Assessment 05/31/2026 05/31/2025, 11/05/2024, 10/26/2024, Additional history exists LIPID TESTING 05/31/2026 05/31/2025 HEPATITIS A VACCINES Aged Out No long er eligible based on patient's age to complete this topic HEPATITIS B VACCINES Aged Out No long er eligible based on patient's age to complete this topic HIB VACCINES Aged Out No longer eligi ble based on patient's age to complete this topic HPV VACCINES Aged Out No longer eligi ble based on patient's age to complete this topic IPV VACCINES Aged Out No longer eligi ble based on patient's age to complete this topic MENINGOCOCCAL VACCINE Aged Out No kiley shyam eligible based on patient's age to complete this topic Meningococcal B Vaccine Aged Out No l onger eligible based on patient's age to complete this topic ROTAVIRUS VACCINES Aged Out No longer eligible based on patient's age to complete this topic Procedures Procedure Name Priority Date/Time Associated Diagnosis Comments URINALYSIS (UA) Routine 05/31/2025 12:56 PM EDT URINE CULTURE Routine 05/31/2025 12:56 PM EDT T3 FREE Routine 05/31/2025 12:45 PM EDT CK (CPK) CREATINE PHOSPHOKINASE Routine 05/31/2025 12:45 PM EDT TSH THIRD GENERATION Routine 05/31/2025 12:45 PM EDT T4 FREE Routine 05/31/2025 12:45 PM EDT LIPID PROFILE Routine 05/31/2025 12:45 PM EDT COMPREHENSIVE METABOLIC PANEL Routine 05/31/2025 12:45 PM EDT CBC W AUTO DIFF Routine 05/31/2025 12:45 PM EDT HEMOGLOBIN A1C Routine 05/31/2025 12:45 PM EDT from Last 3 Months Results * (ABNORMAL) URINALYSIS (UA) (05/31/2025 12:56 PM EDT) Color Yellow [facility] UR Appearance Clear CLEAR [facility] Glucose UA Negative NEGATIVE mg/dL [facility] Urine Bile Negative NEGATIVE mg/dL [facility] Ketones UA Negative NEGATIVE mg/dL [facility] Specific [place] UA 1.020 1.003 - 1.035 NA [facility] Blood UA Negative NEGATIVE [facility] pH UA 5.0 NA [facility] Protein UA Negative NEGATIVE mg/dL [facility] Urobilinogen UA Normal NORMAL mg/dL [facility] L Nitrite UA Negative NEGATIVE [facility] Leukocyte Esterase UA Small(A) NEGATIVE [facility] WBC Urine 21-50(A) 0 - 5 /HPF [facility] RBC Urine 0-2 0 - 2 /HPF [facility] Hyaline Casts Occasional NONE;RARE;OC C /LPF [facility] Epithelial Cells Few /LPF [facility] Urine Bacteria Few NEGATIVE;FEW /HPF [facility] Urine (Urine) 05/31/2025 12: 56 PM EDT 05/31/2025 12:56 PM EDT Narrative [facility] - 05/31/2025 2:04 PM EDT Lab Results: [facility] [place] RESULTED Date/Time: 05/31/2025 14:04 Ordered by: ESTELLE CHEN us Estelle Chen MD URINE ORDERABLES Final R esult [address] [place] [address] [place] [address] * (ABNORMAL) URINE CULTURE (05/31/2025 12:56 PM EDT) Culture Urine (A) [facility] Comment: COLONY COUNT ISOLATE 1 05221 [CFU]/mL RESULT Escherichia coli (Isolate 1) RESULT COMMENT Organism is an ESBL Extended Spectrum Beta-Lactamase Sensitivity Analysis ISO 1 ISO 2 ISO 3 ISO 4 ISO 5 ISO 6 ESBL Pos + AMPICILLIN >=32 R AMPICILLIN/SULBACTAM 4 R PIPERACILLIN/TAZOBACT <=4 R CEFAZOLIN >=32 R CEFTAZIDIME 8 R CEFTRIAXONE >=64 R CEFEPIME 2 R ERTAPENEM <=0.12 S MEROPENEM <=0.25 S GENTAMICIN <=1 S CIPROFLOXACIN 0.5 S LEVOFLOXACIN 1 S NITROFURANTOIN <=16 S TRIMETHOPRIM/SULFAMET <=20 S Urine (Urine) 05/31/2025 12: 56 PM EDT 05/31/2025 12:56 PM EDT Narrative [facility] - 06/02/2025 9:49 AM EDT RESULTED Date/Time: 06/02/2025 09:49 Lab Results: [facility] [place] Ordered By: ESTELLE CHEN us Estelle Chen MD URINE ORDERABLES Final R esult Performing Organization Address [facility]/ZIP Co de Phone Number [address], [place] [address] [place] [address] * (ABNORMAL) TSH THIRD GENERATION (05/31/2025 12:45 PM EDT) TSH High Sensitivity 0.25(L) 0.55 - 4.78 uIU/ml [facility] Blood (PLASMA) 05/31/2025 12 :45 PM EDT 05/31/2025 12:45 PM EDT Narrative [facility] - 05/31/2025 2:09 PM EDT Lab Results: [facility] RESULTED Date/Time: 05/31/2025 14:09 Ordered by: ESTELLE CHEN us Estelle Chen MD CHEMISTRY ORDERABLES Fin al Result [facility] [address] [place] [address] * (ABNORMAL) CBC W AUTO DIFF (05/31/2025 12:45 PM EDT) White Blood Cell Count 6.38 4.00 - 10.80 x1000 [facility] Red Blood Cell Count 3.97 3.70 - 5.17 x10'6 [facility] Hemoglobin 11.30(L) 11.80 - 14.80 gm % [facility] Hematocrit 35.80(L) 37.00 - 46.00 % [facility] Mean Corpuscular Volume 90.2 82.0 - 101.0 fL [facility] Mean Corpuscular Hemoglobin 28.5 26.0 - 34.0 pg [facility] Mean Corpuscular Hemoglobin Conc 31.6(L) 32.0 - 35.0 g/dl [facility] Platelet Count 235 140 - 350 x1000 [facility] Basophils Absolute Count 0.06 0.00 - 0.20 x1000 [facility] Basophils Relative Percent 0.9 % [facility] Eosinophils Absolute Count 0.17 0.00 - 0.70 x1000 [facility] Eosinophils Relative Percent 2.7 % [facility] Lymphocytes Absolute Count 1.12 0.70 - 4.20 x1000 [facility] Lymphocytes Relative Percent 17.6 % [facility] Monocytes Absolute Count 0.55 0.50 - 0.80 x1000 [facility] Monocytes Relative Percent 8.6 % [facility] Neutrophil Absolute Count 4.47 2.40 - 7.90 x1000 [facility] Neutrophil Relative Percent 70.0 % [facility] Mean Platelet Volume 10.4 6.9 - 12.3 fl [facility] NRBC Relative Percent 0.0 0.0 - 0.0 % [facility] NRBC Absolute Count 0.00 0.00 - 0.01 x1000 [facility] RDW-CV 14.5 11.5 - 14.5 % [facility] RDW-SD 47.8(H) 36.4 - 46.3 fl [facility] Imm Gran Absolute Count 0.01 0.00 - 0.30 x1000 [facility] Imm Gran Relative Percent 0.2 % [facility] Blood (WHOLE BLOOD) 05/31/2025 12:45 PM EDT 05/31/2025 12:45 PM EDT [facility] - 05/31/2025 1:52 PM EDT Lab Results: [facility] [place] RESULTED Date/Time: 05/31/2025 13:52 Ordered by: ESTELLE CHEN us Estelle Chen MD HEMATOLOGY ORDERABLES Fi nal Result Performing Organization Address [facility] Co de Phone Number [address] * T3 FREE (05/31/2025 12:45 PM EDT) T3 Free 3.5 2.3 - 4.2 pg/mL [facility] Blood (PLASMA) 05/31/2025 12 :45 PM EDT 05/31/2025 12:45 PM EDT [facility] - 05/31/2025 2:05 PM EDT Lab Results: [facility] [place] RESULTED Date/Time: 05/31/2025 14:05 Ordered by: ESTELLE CHEN us Estelle Chen MD CHEMISTRY ORDERABLES Fin al Result Performing Organization Address [facility] Co de Phone Number [address] * T4 FREE (05/31/2025 12:45 PM EDT) Free T4 1.53 0.89 - 1.76 ng/dL [facility] Blood (PLASMA) 05/31/2025 12 :45 PM EDT 05/31/2025 12:45 PM EDT Narrative [facility] - 05/31/2025 2:05 PM EDT Lab Results: [facility] [place] RESULTED Date/Time: 05/31/2025 14:05 Ordered by: ESTELLE CHEN us Estelle Chen MD CHEMISTRY ORDERABLES Fin al Result Performing Organization Address City/[facility] Co de Phone Number [address] * HEMOGLOBIN A1C (05/31/2025 12:45 PM EDT) Hemoglobin A1C 6.1 4.3 - 6.1 % [facility] Comment: Recently revised guidelines from the [place] [employer] state a HbA1c of 6.5% or higher is diagnostic for Diabetes Mellitus. A level of 5.7-6.4% is considered an indicator of a pre-diabetic condition. Blood (PLASMA) 05/31/2025 12 :45 PM EDT 05/31/2025 12:45 PM EDT Narrative [facility] - 05/31/2025 2:19 PM EDT Lab Results: [facility] [place] RESULTED Date/Time: 05/31/2025 14:19 Ordered by: ESTELLE CHEN us Estelle Chen MD CHEMISTRY ORDERABLES Fin al Result Performing Organization Address City/[facility]/ZIP Co de Phone Number [address] * CK (CPK) CREATINE PHOSPHOKINASE (05/31/2025 12:45 PM EDT) Creatine Kinase Total 53 34 - 145 U/L [facility] Blood (PLASMA) 05/31/2025 12 :45 PM EDT 05/31/2025 12:45 PM EDT Narrative [facility] - 05/31/2025 2:09 PM EDT Lab Results: [facility] [place] RESULTED Date/Time: 05/31/2025 14:09 Ordered by: ESTELLE CHEN us Estelle Chen MD CHEMISTRY ORDERABLES Fin al Result Performing Organization Address [facility] Co de Phone Number [address] * (ABNORMAL) LIPID PROFILE (05/31/2025 12:45 PM EDT) Cholesterol 156 <200 mg/dL [facility] Triglycerides 182(H) <150 mg/dL [facility] HDL Cholesterol 40(L) >40 mg/dL [facility] Comment: Low (undesirable, high risk): <40.0 mg/dL High (desirable, low risk); >60 mg/dL LDL Cholesterol 92 <100 mg/dL [facility] Comment: LDL CHOLESTEROL INTERPRETATION GUIDELINES: Below 100 mg/dL is desirable. 100-129 mg/dL is considered borderline high. 130 mg/dL and above is considered high risk. The higher the value, the greater the risk of CHD. Blood (PLASMA) 05/31/2025 12 :45 PM EDT 05/31/2025 12:45 PM EDT Narrative [facility] - 05/31/2025 2:09 PM EDT Lab Results: [facility] [place] RESULTED Date/Time: 05/31/2025 14:09 Ordered by: ESTELLE CHEN us Estelle Chen MD CHEMISTRY ORDERABLES Fin al Result Performing Organization Address City/[facility] Co de Phone Number [address] [place] [address] [place] [address] * (ABNORMAL) COMPREHENSIVE METABOLIC PANEL (05/31/2025 12:45 PM EDT) Est GFR >60 60 - 350 mL/min [facility] Anion Gap 10 mmol/L [facility] Glucose 113(H) 74 - 106 mg/dL [facility] Blood Urea Nitrogen 16 9 - 23 mg/dL [facility] Creatinine 0.77 0.55 - 1.02 mg/dL [facility] Calcium 9.6 8.3 - 10.6 mg/dL [facility] Sodium 142 136 - 145 mmol/L [facility] Potassium 3.7 3.5 - 5.1 mmol/L [facility] Chloride 102 98 - 107 mmol/L [facility] Co2 30 20 - 31 mmol/L [facility] Protein Total 7.3 5.7 - 8.2 g/dL [facility] Albumin 4.4 3.2 - 4.8 g/dL [facility] Alkaline Phosphatase 85 46 - 116 U/L [facility] Bilirubin, Total 0.4 0.3 - 1.2 mg/dL [facility] AST(SGOT) 18.0 <34.0 U/L [facility] Alt (SGPT) 23.0 10.0 - 49.0 U/L [facility] Blood (PLASMA) 05/31/2025 12 :45 PM EDT 05/31/2025 12:45 PM EDT Narrative [facility] - 05/31/2025 2:09 PM EDT Lab Results: [facility] RESULTED Date/Time: 05/31/2025 14:09 Ordered by: ESTELLE CHEN us Estelle Chen MD CHEMISTRY ORDERABLES Fin al Result Performing Organization Address City/State/[facility] Co de Phone Number [facility] [address] from Last 3 Months Insurance MEDICARE
--- OUTSIDE RECORDS SUMMARY | 2025-06-10 14:24 | XMS_ITS | Clinical Summary ---
Author Organization [facility] [address] [place] [id number] Care Team Providers Care Corrections Caseworker Name Role Phone Trey Posadas MD Primary Care Provider [phone] Allergies Active Allergy Reactions Criticality Noted Date Comments Amoxicillin Hives Medium 02/12/2016 Penicillins Hives Medium Pineapple Hives Medium 10/11/2018 Samson Hives Medium Sulfamethoxazole-Trimethoprim Hives Medium Tomato Hives [...] tabletIndications: hypothyroidism Take 175 mcg by mouth cpc before breakfast Active terbinafine (LamiSIL) 250 mg [...] (09/04/2019): Added automatically from request for surgery [id number] Arthrofibrosis of knee joint, unspecified latera lity 05/15/2019 Overview (05/15/2019): Added automatically from request for surgery [id number] Primary osteoarthritis of left knee 12/06/2018 Overview (12/06/2018): Added automatically from request for surgery [id number] Vitamin D deficiency 10/06/2018 Primary osteoarthritis of right knee 08/23/2018 Overview (08/23/2018): Added automatically from request for surgery [id number] Morbid obesity 05/22/2018 Bariatric surgery status 05/22/2018 [...] Pneumococcal Polysaccharide PPV23 10/15/2014 ZOSTER LIVE 10/15/2014 Surgical History Surgery Date Site/Laterality Comments SLEEVE GASTROPLASTY 11/14/2017 - 11/13/2018 UPPER GASTROINTESTINAL ENDOSCOPY 11/14/2016 - 11/13/2017 TONSILLECTOMY 11/14/1956 - 11/13/1957 EAR SURGERY 11/14/1958 - 11/13/1959 JOINT REPLACEMENT 01/12/2019 - 02/11/2019 Left total knee replacement JOINT REPLACEMENT 09/14/2018 - 10/13/2018 Right total knee replacement KNEE SURGERY Medical History Medical History Date Comments Type 2 diabetes mellitus (HCC) n ot since bariatric surgery Hypertension Hyperlipidemia Morbid obesity (HCC) Anxiety Arthritis Headache Osteoarthritis Pneumonia Thyroid disease Urinary tract infection Varicella Weight loss PONV (postoperative nausea and vomiting) Anemia Hard to intubate H/o multiple fa iled intubation attempts and aborted procedure in past. Succesful intubation w/ awake fiberoptic by ENT after 4 attempts. Family History Medical History Relation Name Comments Hypertension Brother Family history of hypertension - (Added by TW Conv) Alcohol abuse Father Alcohol depend ency - (Added by TW Conv) Heart disease Father Family history of cardiac disorder - (Added by TW Conv) Anesthesia problems Mother Diabetes Mother Family history of diabetes mellitus - (Added by TW Conv) Heart disease Mother Family history of cardiac disorder - (Added by TW Conv) Hypertension Mother Family history of hypertension - (Added by TW Conv) Diabetes Other 1 Family history of diabetes mellitus - (Added by TW Conv) Diabetes Other 2 Family history of diabetes mellitus - Relation: Grandparent (Added by TW Conv) Heart disease Other 3 Family history of cardiac disorder - (Added by TW Conv) Heart disease Other 4 Family history of cardiac disorder - Relation: Grandparent (Added by TW Conv) Hypertension Other 5 Family history of hypertension - (Added by TW Conv) Hypertension Other 6 Family history of hypertension - Relation: Grandparent (Added by TW Conv) Stroke Other 7 Family history of cerebrovascular accident (CVA) - Relation: Grandparent (Added by TW Conv) Relation Name Status Comments Brother Father Mother Delayed emergen ce with multiple procedures Other 1 Other 2 Other 3 Other 4 Other 5 Other 6 Other 7 Social History Tobacco Use Types Packs/Day Years [...] on file Legal Sex Female 6:18 AM REGIONAL FORESTER Gender Identity Not on file Sexual Orientation Not on file 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 on file Not on file Not on file Obstetrics History Last Filed Vital Signs Vital Sign Reading Time Taken Comments Blood Pressure 125/52 01/02/2020 1:00 PM [employer]AL [employer]ESTER Pulse 61 01/02/2020 1:10 PM [employer] Temperature 36.5 C (97.7 F) 01/31/2020 1:57 PM CDT Respiratory Rate 9 01/02/2020 10:1 0 AM [employer]AL [employer]ESTER Oxygen Saturation 97% 01/02/2020 1:10 PM [employer]IONAL [employer]ESTER Inhaled Oxygen Concentration - - Weight 108.7 kg (239 lb 9.6 oz) 020 11:16 AM [employer]IONAL FORESTER Height 156.2 cm (5' 1.5) 12/24/2019 11 :16 AM [employer]IONAL FORESTER Body Mass Index 44.54 12/24/2019 11:16 AM REGIONAL FORESTER Plan of Treatment Not on file Medical Devices Implanted Type Area Rivet Spinner Device Identifier Shelf Expiration Date Model / Serial / Lot [employer] [id number] Persona Cruciate Retain Knee Right 5 Standard Component Femoral - [id number] Implanted:Qty: 1 on 10/11/2018 by Gerhard Khan MD at [facility] Right: Knee [employer] [id number] 06/13/2026 [id number] / / [id number] [employer] [id number] Persona 13mm Cruciate Retain Knee Right 4-5 Cd Insert Articular Latex Free - [id number] Implanted:Qty: 1 on 10/11/2018 by Gerhard Khan MD at [facility] Right: Knee [employer] [id number] 07/14/2020 [id number] / / [id number] [employer] [id number] Persona 2 Peg Knee Right D Baseplate Tibial Trabecular Metal - [id number] Implanted:Qty: 1 on 10/11/2018 by Gerhard Khan MD at [facility] Right: Knee [employer] [id number] 01/12/2028 [id number] / / [id number] [employer] [id number] Persona 12mm Knee Left 6-7 C-D Insert Articular Vivacit-E Sterile - [id number] Implanted:Qty: 1 on 01/19/2019 by Gerhard Khan MD at [facility] Left: Knee [employer] [id number] 04/13/2021 [id number] / / [id number] [employer] [id number] Persona 2 Peg Knee Left D Baseplate Tibial Trabecular Metal - [id number] Implanted:Qty: 1 on 01/19/2019 by Gerhard Khan MD at [facility] Left: Knee [employer] 08/13/2028 [id number] / / [id number] [employer] [id number] Persona Cruciate Retaining Knee Left 6 Narrow Component Femoral - [id number] Implanted:Qty: 1 on 01/19/2019 by Gerhard Khan MD at [facility] Left: Knee [employer] 07/14/2028 [id number] / / [id number] [employer] [id number] Persona 11mm Knee Right 4-5 C-D Insert Articular Vivacit-E - [id number] Implanted:Qty: 1 on 10/31/2019 by Gerhard Khan MD at [facility] Right: Knee [employer] [id number] 02/11/2021 [id number] / / [id number] Insurance MEDICARE [facility] ANTH ACCESS MEDICARE ANTH TRADITIONAL Member Subscriber Plan / Payer (Ef fective 2019-Present) Name:Mary Lou Fiore Relation to Subscriber:Self Name:Mary Lou Fiore Payer ID:[id number] (NAIC) Type:[employer] Address: [address] TRADITIONAL OOS Advance Directives For more information, please contact: [phone] * Full Code (Latest Code Status on File) Date Activated Date Inactivated Comments 10/31/2019 8:52 PM 11/02/2019 9:41 PM * Full Code Date Activated Date Inactivated Comments 05/25/2019 7:38 AM 05/25/2019 1:34 PM * Full Code Date Activated Date Inactivated Comments 01/19/2019 5:06 PM 01/20/2019 5:59 PM * Full Code Date Activated Date Inactivated Comments 10/11/2018 6:29 PM 10/12/2018 4:26 PM Care Teams Corrections Caseworker Relationship Specialty Start Date End Date Trey Posadas MD [address] [place] [address] PCP - General 03/11/17
== END 2025-06-10 14:19 | disposition home or self-care (01) ==
LOC: CHSIMG 14:21
PROVIDERS: PCP Internal Medicine; Visit Provider Internal Medicine
DX: Z12.31 Encounter for screening mammogram for malignant neoplasm of breast (principal)
CPT/HCPCS: 77063; 77067